=== PATIENT | female | born 1950 | race Caucasian/White ===

== ENCOUNTER 2018-12-22 11:51 | Emergency (ER) | payer OTHER ==
[~2018-12-22] VITALS: Ht 157.5 cm; Wt 80.7 kg
--- OUTSIDE RECORDS SUMMARY | 2018-12-22 11:54 | XMS REPORT | Clinical Summary ---
Author [facility] Address Unknown Phone Unavailable Care Team Providers Care Vice President Diversity Name Role Phone Edna Pino MD PCP Allergies Comments Active Allergy Reactions Severity Noted Date disorientation Zolpidem 01/18/2016 Yeast infection Erythromycin 07/10/2015 Disorientation, agitation Morphine 05/09/2017 Medications End Date Status Medication Sig Dispensed Refills Start Date Active atorvastatin (LIPITOR) 10 Take 10 mg by 0 MG tablet mouth. 5 Active glimepiride (AMARYL) 4 MG Take 4 mg by 0 201 tablet mouth daily . 5 Active losartan (COZAAR) 100 MG 100 mg. 0 tablet 1 Active meloxicam (MOBIC) 15 MG Take 15 mg by 0 tablet mouth as 5 needed . Active metFORMIN (GLUCOPHAGE) Take 500 mg 0 500 MG tablet by mouth 2 5 (two) times daily with breakfast and dinner . Active omeprazole (PRILOSEC) 20 Take 20 mg by 0 MG capsule mouth daily . 5 Active gabapentin (NEURONTIN) Take 100 mg 0 100 MG capsule by mouth 3 (three) times daily. Active Problems Not on file Social History Date Tobacco Use Types Packs/Day Years Used Never Smoker Alcohol Use Drinks/Week oz/Week Comments No Sex Assigned at Date Recorded Not on file Industry Job Start Date Occupation Not on file Not on file Not on file Travel End Travel History Travel Start No recent travel history available. Last Filed Vital Signs Not on file Plan of Treatment Not on file Results Not on fileafter 12/21/2017 Insurance Payer Benefit Subscriber ID Type Phone Address Plan / Group [employer] xxxxxxxxx Maps HMO ALL Contracted
--- OUTSIDE RECORDS SUMMARY | 2018-12-22 11:55 | XMS REPORT | Summary of Care ---
Author Author [facility] Organization [facility] Address Unknown Phone Unavailable Encounter TAMARA Lyons(BHARAT) [id number] Date(s): 05/08/17 - 05/09/17 [facility] [address] [place] [address]- [phone] Discharge Diagnosis: Cholelithiasis Discharge Disposition: Home or Self Care Attending Physician: Prateek Mancini DO Vital Signs Most recent to 1 2 oldest [Reference Range]: Height 157.48 cm (05/08/17 8:24 PM) Temperature Oral 98.8 DegF [96.4-99.1 DegF] (05/08/17 8:24 PM) Blood Pressure 178/78 mmHg 205/92 mmHg [90-140/60-90 mmHg] *HI* *HI* (05/09/17 12:15 AM) (05/08/17 8:24 PM) Respiratory Rate 18 BRMIN 16 BRMIN [14-20 BRMIN] (05/09/17 12:15 AM) (05/08/17 8:24 PM) Peripheral Pulse 92 bpm Rate [60-100 bpm] (05/08/17 8:24 PM) Weight 81.818 kg (05/08/17 8:24 PM) Body Mass Index 32.99 m2 (05/08/17 8:24 PM) Problem List Condition Effective Dates Status Health Status Informant Anxiety(Confirmed) Resolved Apnea, Resolved sleep(Confirmed) Arthritis(Confirmed) Resolved 1 Asthma(Confirmed) Resolved Bronchitis(Confirmed Resolved ) Diabetes(Confirmed) Active End stage kidney Active disease(Confirmed) H/O urinary tract Resolved infection(Confirmed) HTN Active (hypertension)(Confi rmed) H/O Resolved neuropathy(Confirmed ) 1knees Allergies, Adverse Reactions, Alerts Substance Reaction Severity Status Ambien Active azithromycin Active morphine Active Medications fentaNYL 25 microgram, 0.5 mL, Route: IVP, Drug form: INJ, ONCE, Dosing Weight 81.818, kg , Priority: STAT, Start date: 05/08/17 20:28:00 CDT, Stop date: 05/08/17 20:28:0 0 CDT Notes: (Same as: Sublimaze) Preservative free. Start Date: 05/08/17 Stop Date: 05/08/17 Status: Discontinued fentaNYL 50 microgram, 1 mL, Route: IVP, Drug form: INJ, ONCE, Dosing Weight 81.818, kg, Priority: STAT, Start date: 05/08/17 23:20:00 CDT, Stop date: 05/08/17 23:20:00 CDT Notes: (Same as: Sublimaze) Preservative free. Start Date: 05/08/17 Stop Date: 05/08/17 Status: Completed ondansetron 4 mg, 2 mL, Route: IVP, Drug form: INJ, ONCE, Dosing Weight 81.818, kg, Priority : STAT, Start date: 05/08/17 20:26:00 CDT, Stop date: 05/08/17 20:26:00 CDT Notes: (Same as: Zofran) MEDICATION WASTE Product Size: 4 mgProduct Was alethea: ___ mg Start Date: 05/08/17 Stop Date: 05/08/17 Status: Completed Saline Flush 0.9% 10 mL, Route: IVP, Drug Form: INJ, Dosing Weight 81.818, kg, PRN, PRN Line Flush , Start date: 05/08/17 20:26:00 CDT, Duration: 30 day, Stop date: 06/07/17 20:25 :00 CDT Notes: (Same as: BD Posiflush) Start Date: 05/08/17 Stop Date: 05/09/17 Status: Discontinued Tylenol with Codeine #3 oral tablet 1-2 tab, PO, Q6H, PRN for pain, X 3 day, # 24 tab, 0 Refill(s) Start Date: 05/09/17 Stop Date: 05/12/17 Status: Ordered Zofran 4 mg, 2 mL, Route: IVP, Drug form: INJ, ONCE, Dosing Weight 81.818, kg, Priority : STAT, Start date: 05/08/17 23:20:00 CDT, Stop date: 05/08/17 23:20:00 CDT Notes: (Same as: Tova) MEDICATION WASTE Product Size: 4 mgProduct Was alethea: ___ mg Start Date: 05/08/17 Stop Date: 05/08/17 Status: Deleted Results ELECTROLYTES Most recent to 1 oldest [Reference Range]: Sodium Lvl [135-145 138 mEq/L mEq/L] (05/08/17 9:54 PM) Potassium Lvl 3.5 mEq/L [3.5-5.1 mEq/L] (05/08/17 9:54 PM) Chloride Lvl [95-109 103 mEq/L mEq/L] (05/08/17 9:54 PM) CO2 [24-32 mEq/L] 26 mEq/L (05/08/17 9:54 PM) AGAP [10.0-20.0 12.5 mEq/L mEq/L] (05/08/17 9:54 PM) CHEM PANEL Most recent to 1 oldest [Reference Range]: Creatinine Lvl 1.03 mg/dL [0.50-1.40 mg/dL] (05/08/17 9:54 PM) eGFR 56 mL/min/1.73m2 1 *NA* (05/08/17 9:54 PM) BUN [7-22 mg/dL] 13 mg/dL (05/08/17 9:54 PM) B/C Ratio [6-25] 13 (05/08/17 9:54 PM) Glucose Lvl [70-99 160 mg/dL mg/dL] *HI* (05/08/17 9:54 PM) Total Protein 7.2 g/dL [6.4-8.4 g/dL] (05/08/17 9:54 PM) Albumin Lvl [3.5-5.0 3.5 g/dL g/dL] (05/08/17 9:54 PM) Globulin [2.7-4.2 3.7 g/dL g/dL] (05/08/17 9:54 PM) A/G Ratio [0.7-1.6] 0.9 (05/08/17 9:54 PM) Calcium Lvl 9.1 mg/dL [8.5-10.5 mg/dL] (05/08/17 9:54 PM) ALT [0-65 unit/L] 17 unit/L (05/08/17 9:54 PM) AST [0-37 unit/L] 17 unit/L (05/08/17 9:54 PM) Alk Phos [39-136 142 unit/L unit/L] *HI* (05/08/17 9:54 PM) Bili Total [0.2-1.3 0.6 mg/dL mg/dL] (05/08/17 9:54 PM) Lipase Lvl [73-393 50 unit/L unit/L] *LOW* (05/08/17 9:54 PM) 1Result Comment: The eGFR is calculated using the CKD-EPI formula. In most young, healthy individuals the eGFR will be >90 mL/min/1.73m2. The eGFR declines with age. An eGFR of 60-89 may be normal in some populations, particularly the elderly, for whom the CKD-EPI formula has not been extensively validated. Use of the eGFR is not recommended in the following populations: Individuals with unstable creatinine concentrations, including patients and those with serious co-morbid conditions. Patients with extremes in muscle mass or diet. The data above are obtained from the National Kidney Disease Education Program ( NKDEP) which additionally recommends that when the eGFR is used in patients with extremes of body mass index for purposes of drug dosing, the eGFR should be mul tiplied by the estimated BMI. CARDIAC ENZYMES Most recent to 1 oldest [Reference Range]: Total CK [12-191 109 unit/L unit/L] (05/08/17 9:54 PM) CK MB [0.5-3.6 1.0 ng/mL ng/mL] (05/08/17 9:54 PM) CK MB Index 0.9 [0.0-2.5] (05/08/17 9:54 PM) Troponin-I <0.02 ng/mL [0.00-0.40 ng/mL] (05/08/17 9:54 PM) HEMATOLOGY Most recent to 1 oldest [Reference Range]: WBC [3.7-10.4 K/CMM] 9.5 K/CMM (05/08/17 9:54 PM) RBC [4.20-5.40 4.48 M/CMM M/CMM] (05/08/17 9:54 PM) Hgb [12.0-16.0 g/dL] 13.9 g/dL (05/08/17 9:54 PM) Hct [36.0-48.0 %] 40.6 % (05/08/17 9:54 PM) MCV [80.0-98.0 fL] 90.6 fL (05/08/17 9:54 PM) MCH [27.0-31.0 pg] 31.0 pg (05/08/17 9:54 PM) MCHC [32.0-36.0 34.2 g/dL g/dL] (05/08/17 9:54 PM) RDW [11.5-14.5 %] 13.4 % (05/08/17 9:54 PM) Platelet [133-450 167 K/CMM K/CMM] (05/08/17 9:54 PM) MPV [7.4-10.4 fL] 11.0 fL *HI* (05/08/17 9:54 PM) Segs [45.0-75.0 %] 74.5 % (05/08/17 9:54 PM) Lymphocytes 16.8 % [20.0-40.0 %] *LOW* (05/08/17 9:54 PM) Monocytes [2.0-12.0 6.8 % %] (05/08/17 9:54 PM) Eosinophils [0.0-4.0 1.0 % %] (05/08/17 9:54 PM) Basophils [0.0-1.0 0.9 % %] (05/08/17 9:54 PM) Segs-Bands # 7.1 K/CMM [1.5-8.1 K/CMM] (05/08/17 9:54 PM) Lymphocytes # 1.6 K/CMM [1.0-5.5 K/CMM] (05/08/17 9:54 PM) Monocytes # [0.0-0.8 0.6 K/CMM K/CMM] (05/08/17 9:54 PM) Eosinophils # 0.1 K/CMM [0.0-0.5 K/CMM] (05/08/17 9:54 PM) Basophils # [0.0-0.2 0.1 K/CMM K/CMM] (05/08/17 9:54 PM) Immunizations No data available for this section Procedures Procedure Date Related Diagnosis Body Site Hysterectomy1 Insertion of tunneled dialysis catheter using fluoroscopic guidance2 Tonsillectomy 1total abdominal hysterectomy 2December 2014 Social History Social History Type Response Alcohol Never Smoking Status Never smoker; Exposure to Tobacco Smoke None; Cigarette Smoking Last 365 Days No; Reg Smoking Cessation Counseling Yes Assessment and Plan No data available for this section
--- OUTSIDE RECORDS SUMMARY | 2018-12-22 11:55 | XMS REPORT | Summary of Care ---
Author Author [facility] Organization [facility] Address Unknown Phone Unavailable Encounter TAMARA Lyons(BHARAT) [id number] Date(s): 11/17/15 - 11/24/15 [facility] [address] [place] [address]- Final: Syncope and collapse Discharge Disposition: Home Attending Physician: Carlos Massey MD Admitting Physician: Carlos Massey MD Vital Signs 1 2 3 Most recent to oldest [Reference Range]: 157.48 cm (11/17/15 3:54 PM) 157.48 cm (11/17/15 10:26 AM) Height 68.239 kg (11/24/15 5:46 AM) 68.381 kg (11/23/15 5:43 AM) 67.227 kg (11/22/15 4:23 AM) Current Weight 98.2 DegF (11/24/15 4:00 PM) 98.5 DegF (11/24/15 12:00 PM) 97.5 DegF (11/24/15 8:13 AM) Temperature Oral [96.4-99.1 DegF] 117/68 mmHg (11/24/15 4:00 PM) 107/67 mmHg (11/24/15 12:00 PM) 156/81 mmHg *HI* (11/24/15 8:13 AM) Blood Pressure [90-140/60-90 mmHg] 18 BRMIN (11/24/15 4:00 PM) 20 BRMIN (11/24/15 12:00 PM) 18 BRMIN (11/24/15 8:13 AM) Respiratory Rate [14-20 BRMIN] 65 bpm (11/24/15 4:00 PM) 64 bpm (11/24/15 12:00 PM) 63 bpm (11/24/15 8:13 AM) Peripheral Pulse Rate [60-100 bpm] 69.864 kg (11/20/15 7:38 AM) 72 kg (11/17/15 3:54 PM) 77.273 kg (11/17/15 10:26 AM) Weight 29.03 m2 (11/17/15 3:54 PM) 31.16 m2 (11/17/15 10:26 AM) Body Mass Index Problem List Condition Effective Dates Status Health Status Informant Apnea, Resolved sleep(Confirmed) Arthritis(Confirmed) Resolved 1 Asthma(Confirmed) Resolved Bronchitis(Confirmed Resolved ) Diabetes(Confirmed) Active End stage kidney Active disease(Confirmed) H/O urinary tract Resolved infection(Confirmed) HTN Active (hypertension)(Confi rmed) 1knees Allergies, Adverse Reactions, Alerts Substance Reaction Severity Status azithromycin Active Medications acetaminophen-hydrocodone 325 mg-5 mg oral tablet 1 tab, Route: PO, Drug Form: TAB, Dosing Weight 72, kg, Q6H, PRN Pain Score 1-3, Start date: 11/18/15 8:36:00, Duration: 30 day, Stop date: 12/18/15 8:35:00 Notes: (Same as: Robbins 325/5) Do not exceed 4gm/day of acetaminophen. Start Date: 11/18/15 Stop Date: 11/24/15 Status: Discontinued amLODIPine 10 mg, 2 tab, Route: PO, Drug form: TAB, Daily, Dosing Weight 72, kg, Start date : 11/18/15 9:00:00, Duration: 30 day, Stop date: 12/17/15 9:00:00 Notes: (Same as: Norvasc) Start Date: 11/18/15 Stop Date: 11/24/15 Status: Discontinued amLODIPine 10 mg, PO, Daily, 0 Refill(s) Start Date: 11/17/15 Status: Ordered aspirin 325 mg, 1 tab, Route: PO, Drug form: TAB, Daily, Dosing Weight 72, kg, Start mia e: 11/17/15 20:00:00, Duration: 30 day, Stop date: 12/17/15 9:00:00 Notes: Take with food. Start Date: 11/17/15 Stop Date: 11/20/15 Status: Discontinued aspirin 81 mg tablet, enteric coated 81 mg=1 tab, PO, Daily, 0 Refill(s) Start Date: 11/24/15 Status: Ordered aspirin 81 mg tablet, enteric coated 81 mg, 1 tab, Route: PO, Drug form: ECTAB, Daily, Dosing Weight 69.864, kg, Star t date: 11/21/15 9:00:00, Duration: 30 day, Stop date: 12/20/15 9:00:00 Notes: Do not crush or chew.(Same As: Ecotrin) Start Date: 11/21/15 Stop Date: 11/24/15 Status: Discontinued atorvastatin 20 mg, 2 tab, Route: PO, Drug form: TAB, Bedtime, Dosing Weight 72, kg, Start da te: 11/17/15 21:00:00, Duration: 30 day, Stop date: 12/16/15 21:00:00 Notes: (Same As: Lipitor) Start Date: 11/17/15 Stop Date: 11/24/15 Status: Discontinued atorvastatin 20 mg, PO, Bedtime, 0 Refill(s) Start Date: 11/17/15 Status: Ordered atorvastatin 20 mg, Route: PO, Drug form: TAB, Bedtime, Dosing Weight 69.864, kg, Start date: 11/20/15 21:00:00, Duration: 30 day, Stop date: 12/19/15 21:00:00 Start Date: 11/20/15 Stop Date: 11/20/15 Status: Deleted cefTRIAXone + Sodium Chloride 0.9% IV 100 mL 1 gm, Route: IVPB, [id number], Dosing Weight 77.273, kg, Start date: 11/17/15 16:00 :00, Duration: 30 day, Stop date: 12/16/15 21:00:00 Notes: (Same As: Rocephin).Use with 100 mL NS and infuse over 30 min MEDICA TION WASTE Product Size: 1000 mgProduct Wasted: ___ mg Start Date: 11/17/15 Stop Date: 11/24/15 Status: Discontinued D5W 1/2NS 1,000 mL 1,000 mL, Rate: 40 ml/hr, Infuse over: 25 hr, Route: IV, Dosing Weight 69.864 kg , Total Volume: 1,000, Start date: 11/22/15 11:29:00, Duration: 30 day, Stop mia e: 12/22/15 11:28:00 Start Date: 11/22/15 Stop Date: 11/24/15 Status: Discontinued D5W 1/2NS 1,000 mL 1,000 mL, Rate: 60 ml/hr, Infuse over: 16.7 hr, Route: IV, Dosing Weight 69.864 kg, Total Volume: 1,000, Start date: 11/22/15 10:06:00, Duration: 30 day, Stop d ate: 12/22/15 10:05:00 Start Date: 11/22/15 Stop Date: 11/22/15 Status: Discontinued Demerol HCl 25 mg, 1 mL, Route: IVP, Drug form: INJ, Q30Min, Dosing Weight 69.864, kg, PRN P ain Score 4-6, Start date: 11/20/15 18:40:00, Duration: 2 doses or times, Stop d ate: Limited # of times Notes: (Same as: Demerol) "Use Precaution in Elderly, Seizure disorders, and Re nal impairment" Start Date: 11/20/15 Stop Date: 11/24/15 Status: Discontinued Dextrose 50% Syringe 12.5 gm, 25 mL, Route: IVP, Drug Form: INJ, Dosing Weight 72, kg, PRN, PRN Blood Glucose Results, Start date: 11/17/15 15:58:00, Duration: 30 day, Stop date: 16:57:00 Start Date: 11/17/15 Stop Date: 11/24/15 Status: Discontinued Dextrose 50% Syringe 25 gm, 50 mL, Route: IVP, Drug Form: INJ, Dosing Weight 72, kg, PRN, PRN Blood G lucose Results, Start date: 11/17/15 15:58:00, Duration: 30 day, Stop date: 11/28 16:57:00 Start Date: 11/17/15 Stop Date: 11/24/15 Status: Discontinued diphenhydrAMINE 50 mg, 2 tab, Route: PO, Drug form: TAB, ONCE, Dosing Weight 72, kg, Administer when patient is called for by Channel Opener., Start date: 11/19/15 8:01:00, Stop date : 11/19/15 8:01:00 Start Date: 11/19/15 Stop Date: 11/20/15 Status: Completed gabapentin 300 mg, PO, TID, 0 Refill(s) Start Date: 11/17/15 Status: Ordered gabapentin 100 mg, 1 cap, Route: PO, Drug form: CAP, TID, Dosing Weight 72, kg, Start date: 11/17/15 22:00:00, Duration: 30 day, Stop date: 12/17/15 14:00:00 Notes: (Same as: Neurontin) Start Date: 11/17/15 Stop Date: 11/24/15 Status: Discontinued glimepiride 2 mg, PO, BID, before meals, 0 Refill(s) Start Date: 11/17/15 Status: Ordered glimepiride 2 mg, 1 tab, Route: PO, Drug form: TAB, BID-Before Meals, Dosing Weight 72, kg, Start date: 11/18/15 7:30:00, Duration: 30 day, Stop date: 12/17/15 16:30:00 Notes: (Same as: Amaryl) Start Date: 11/18/15 Stop Date: 11/24/15 Status: Discontinued glucagon 1 mg, Route: IM, Drug form: PDR/INJ, PRN, Dosing Weight 72, kg, PRN Blood Glucos e Results, Start date: 11/17/15 15:58:00, Duration: 30 day, Stop date: 12/17/15 16:57:00 Start Date: 11/17/15 Stop Date: 11/24/15 Status: Discontinued Heparin - one time bolus for ACS 3,500 unit, 3.5 mL, Route: IV, Drug form: INJ, ONCE, Dosing Weight 72, kg, Prior ity: STAT, Start date: 11/17/15 18:47:00, Stop date: 11/17/15 18:47:00 Start Date: 11/17/15 Stop Date: 11/17/15 Status: Completed Heparin 30 unit/kg Bolus (Heparin Dosing Weight) Route: IVP, PRN, 1,800 unit, 1.8 mL, Drug form: INJ, PRN, Heparin Protocol, Star t date: 11/17/15 18:47:00 Stop date: 12/17/15 19:46:00, 30 day Start Date: 11/17/15 Stop Date: 11/20/15 Status: Discontinued Heparin 60 unit/kg Bolus (Heparin Dosing Weight) Route: IVP, PRN, 3,500 unit, 3.5 mL, Drug form: INJ, PRN, Heparin Protocol, Star t date: 11/17/15 18:47:00 Stop date: 12/17/15 19:46:00, 30 day Start Date: 11/17/15 Stop Date: 11/20/15 Status: Discontinued heparin additive 25,000 unit [12 unit/kg/hr] + Premix Diluent Dextrose 5% 500 mL 500 mL, Rate: 14.13 ml/hr, Infuse over: 35.4 hr, Route: IV, Dosing Weight 58.86 kg, Total Volume: 500 mL, Start date: 11/17/15 18:47:00, Duration: 30 day, Stop date: 12/17/15 18:46:00 Start Date: 11/17/15 Stop Date: 11/20/15 Status: Discontinued insulin aspart 6 unit, SUB-Q, Bedtime, 0 Refill(s) Start Date: 11/17/15 Status: Ordered insulin aspart 6 unit, 0.06 mL, Route: SUB-Q, Drug form: SOLN, TID-Before Meals, Dosing Weight 72, kg, PRN Blood Glucose Results, Start date: 11/17/15 15:58:00, Duration: 30 d ay, Stop date: 12/17/15 15:57:00 Notes: Roll in palms of hands gently; Do not shake vigorously. (Same as: Milan Vu)"single patient use only"WASTE: F/P - Black; E - Municipal Trash Bin Stable f or 28 days at room temperature.Expires in days from Date Start Date: 11/17/15 Stop Date: 11/24/15 Status: Discontinued insulin aspart 10 unit, 0.1 mL, Route: SUB-Q, Drug form: SOLN, TID-Before Meals, Dosing Weight 72, kg, PRN Blood Glucose Results, Start date: 11/17/15 15:58:00, Duration: 30 d ay, Stop date: 12/17/15 15:57:00 Notes: Roll in palms of hands gently; Do not shake vigorously. (Same as: Milan Vu)"single patient use only"WASTE: F/P - Black; E - Municipal Trash Bin Stable f or 28 days at room temperature.Expires in days from Date Start Date: 11/17/15 Stop Date: 11/24/15 Status: Discontinued insulin aspart 2 unit, 0.02 mL, Route: SUB-Q, Drug form: SOLN, TID-Before Meals, Dosing Weight 72, kg, PRN Blood Glucose Results, Start date: 11/17/15 15:58:00, Duration: 30 d ay, Stop date: 12/17/15 15:57:00 Notes: Roll in palms of hands gently; Do not shake vigorously. (Same as: Milan Vu)"single patient use only"WASTE: F/P - Black; E - Municipal Trash Bin Stable f or 28 days at room temperature.Expires in days from Date Start Date: 11/17/15 Stop Date: 11/24/15 Status: Discontinued insulin aspart 4 unit, 0.04 mL, Route: SUB-Q, Drug form: SOLN, TID-Before Meals, Dosing Weight 72, kg, PRN Blood Glucose Results, Start date: 11/17/15 15:58:00, Duration: 30 d ay, Stop date: 12/17/15 15:57:00 Notes: Roll in palms of hands gently; Do not shake vigorously. (Same as: Milan Vu)"single patient use only"WASTE: F/P - Black; E - Municipal Trash Bin Stable f or 28 days at room temperature.Expires in days from Date Start Date: 11/17/15 Stop Date: 11/24/15 Status: Discontinued insulin aspart 8 unit, 0.08 mL, Route: SUB-Q, Drug form: SOLN, TID-Before Meals, Dosing Weight 72, kg, PRN Blood Glucose Results, Start date: 11/17/15 15:58:00, Duration: 30 d ay, Stop date: 12/17/15 15:57:00 Notes: Roll in palms of hands gently; Do not shake vigorously. (Same as: NovoLO G)"single patient use only"WASTE: F/P - Black; E - Municipal Trash Bin Stable f or 28 days at room temperature.Expires in days from Date Start Date: 11/17/15 Stop Date: 11/24/15 Status: Discontinued insulin aspart 6 unit, 0.06 mL, Route: SUB-Q, Drug form: SOLN, Bedtime, Dosing Weight 72, kg, S tart date: 11/17/15 21:00:00, Duration: 30 day, Stop date: 12/16/15 21:00:00 Notes: Roll in palms of hands gently; Do not shake vigorously. (Same as: NovoBETY G)"single patient use only"WASTE: F/P - Black; E - Municipal Trash Bin Stable f or 28 days at room temperature.Expires in days from Date Start Date: 11/17/15 Stop Date: 11/24/15 Status: Discontinued isosorbide mononitrate extended release 30 mg, 1 tab, Route: PO, Drug form: ERTAB, Daily, Dosing Weight 69.864, kg, Star t date: 11/21/15 9:00:00, Duration: 30 day, Stop date: 12/20/15 9:00:00 Notes: (Same as:Imdur)"Do Not Crush" Take on empty stomach/ full glass of water . Do not crush Start Date: 11/21/15 Stop Date: 11/24/15 Status: Discontinued lactulose 30 gm, 45 mL, Route: PO, Drug Form: SYRP, Dosing Weight 72, kg, Q6H, PRN See Beto pappas's Notes, Start date: 11/18/15 13:55:00, Duration: 30 day, Stop date: 12/18/15 13:54:00, for constipation Notes: (Same as:Chronulac) Start Date: 11/18/15 Stop Date: 11/24/15 Status: Discontinued Lopressor 100 mg, 1 tab, Route: PO, Drug form: TAB, Q12H, Dosing Weight 72, kg, Start date : 11/17/15 21:00:00, Duration: 30 day, Stop date: 12/17/15 9:00:00 Notes: (Same as: Lopressor) Start Date: 11/17/15 Stop Date: 11/20/15 Status: Discontinued LORazepam 0.5 mg, 1 tab, Route: PO, Drug form: TAB, Q8H, Dosing Weight 72, kg, PRN Other - See Comment, Start date: 11/18/15 17:18:00, Duration: 30 day, Stop date: 6 17:17:00, for anxiety Notes: (Same as: Ativan) Start Date: 11/18/15 Stop Date: 11/24/15 Status: Discontinued losartan 100 mg, 2 tab, Route: PO, Drug form: TAB, Daily, Dosing Weight 72, kg, Start mia e: 11/17/15 20:00:00, Duration: 30 day, Stop date: 12/17/15 9:00:00 Notes: (Same as: Cozaar) Start Date: 11/17/15 Stop Date: 11/24/15 Status: Discontinued losartan 50 mg oral tablet 100 mg=2 tab, PO, Daily, 0 Refill(s) Start Date: 11/17/15 Status: Ordered metoprolol tartrate 100 mg, 1 tab, Route: PO, Drug form: TAB, Q12H, Dosing Weight 69.864, kg, Start date: 11/20/15 21:00:00, Duration: 30 day, Stop date: 12/20/15 9:00:00 Notes: (Same as: Lopressor) Start Date: 11/20/15 Stop Date: 11/24/15 Status: Discontinued metoprolol tartrate 50 mg oral tablet 100 mg=2 tab, PO, BID, 0 Refill(s) Start Date: 11/17/15 Status: Ordered morphine Sulfate 2 mg, 1 mL, Route: IV, Drug form: INJ, Q30Min, Dosing Weight 69.864, kg, PRN Lisa n Score 4-6, Start date: 11/20/15 13:52:00, Duration: 30 day, Stop date: 6 14:51:00 Notes: (Same as:MORPhine Sulfate) Start Date: 11/20/15 Stop Date: 11/24/15 Status: Discontinued nitroglycerin SL Tab 0.4 mg, Route: SL, Drug form: TAB, Q5Min, Dosing Weight 69.864, kg, PRN Chest Pa in, Start date: 11/20/15 13:48:00, Duration: 3 doses or times, Stop date: Limite d # of times Start Date: 11/20/15 Stop Date: 11/20/15 Status: Deleted nitroglycerin SL Tab 0.4 mg, 1 tab, Route: SL, Drug form: TAB, Q5Min, Dosing Weight 72, kg, PRN Chest Pain, Start date: 11/17/15 15:59:00, Duration: 3 doses or times, Stop date: Gaspar ited # of times Notes: (Same as:Nitroquick, Nitrostat)"Do Not Crush" Sublingual tablet Start Date: 11/17/15 Stop Date: 11/24/15 Status: Discontinued pantoprazole 40 mg, PO, Daily, before breakfast, # 30 tab, 0 Refill(s) Start Date: 11/17/15 Stop Date: 12/17/15 Status: Ordered pantoprazole 40 mg, 1 tab, Route: PO, Drug form: ECTAB, Daily, Dosing Weight 72, kg, Start da te: 11/18/15 9:00:00, Duration: 30 day, Stop date: 12/17/15 9:00:00 Notes: Tablet should not be chewed or crushed.(Same as: Protonix) Start Date: 11/18/15 Stop Date: 11/24/15 Status: Discontinued Phenergan 12.5 mg, 0.5 tab, Route: PO, Drug form: TAB, Q4H, Dosing Weight 69.864, kg, PRN Nausea & Vomiting, Start date: 11/22/15 8:47:00, Duration: 30 day, Stop date: 12/22/15 8:46:00 Notes: (Same as: Phenergan) Start Date: 11/22/15 Stop Date: 11/24/15 Status: Discontinued Phenergan 12.5 mg, 50 mL, Route: IVPB, Drug form: SOLN, Q6H, Dosing Weight 69.864, kg, PRN Nausea & Vomiting, Start date: 11/20/15 22:24:00, Duration: 30 day, Stop date: 12/20/15 22:23:00 Start Date: 11/20/15 Stop Date: 11/24/15 Status: Discontinued potassium chloride 40 mEq, 2 tab, Route: PO, Drug form: ERTAB, ONCE, Dosing Weight 72, kg, Start da te: 11/20/15 6:22:00, Stop date: 11/20/15 6:22:00 Notes: (Same as: K-Dur 20)"Do Not Crush" With food and full glass of water Start Date: 11/20/15 Stop Date: 11/20/15 Status: Completed potassium chloride 40 mEq, 2 tab, Route: PO, Drug form: ERTAB, ONCE, Dosing Weight 72, kg, Start da te: 11/17/15 16:05:00, Stop date: 11/17/15 16:05:00 Notes: (Same as: K-Dur 20)"Do Not Crush" With food and full glass of water Start Date: 11/17/15 Stop Date: 11/17/15 Status: Completed potassium chloride 20 mEq/15 mL oral liquid 40 mEq, 30 mL, Route: PO, Drug form: LIQ, ONCE, Dosing Weight 72, kg, Start date : 11/19/15 11:11:00, Stop date: 11/19/15 11:11:00 Notes: (Same as: Potassium Chloride) Start Date: 11/19/15 Stop Date: 11/19/15 Status: Completed Saline Flush 0.9% 10 mL, Route: IVP, Drug Form: INJ, Dosing Weight 77.273, kg, PRN, PRN Line Flush , Start date: 11/17/15 10:52:00, Duration: 30 day, Stop date: 12/17/15 11:51:00 Notes: (Same as: BD Posiflush) Start Date: 11/17/15 Stop Date: 11/24/15 Status: Discontinued Saline Flush 0.9% 10 ml, Route: IVP, Drug Form: INJ, Dosing Weight 72, kg, Q12H, Start date: 11/17 21:00:00, Duration: 30 day, Stop date: 12/17/15 9:00:00 Notes: (Same as: BD Posiflush) Start Date: 11/17/15 Stop Date: 11/24/15 Status: Discontinued Saline Flush 0.9% 10 ml, Route: IVP, Drug Form: INJ, Dosing Weight 72, kg, PRN, PRN Line Flush, St art date: 11/17/15 15:59:00, Duration: 30 day, Stop date: 12/17/15 16:58:00 Notes: (Same as: BD Posiflush) Start Date: 11/17/15 Stop Date: 11/24/15 Status: Discontinued Sodium Chloride 0.9% (Bolus) IV 1,000 mL, 1000 ml/hr, Infuse Over: 1 hr, Route: IV, 1,000, Drug form: INJ, ONCE, Priority: STAT, Dosing Weight 77.273 kg, Start date: 11/17/15 10:52:00, Duratio n: 1 doses or times, Stop date: 11/17/15 10:52:00 Start Date: 11/17/15 Stop Date: 11/17/15 Status: Completed Sodium Chloride 0.9% (Bolus) IV 250 mL, 250 ml/hr, Infuse Over: 1 hr, Route: IV, 250, Drug form: INJ, ONCALL, Pr iority: Routine, Dosing Weight 72 kg, Start date: 11/19/15 9:00:00, Duration: 1 doses or times Start Date: 11/19/15 Stop Date: 11/20/15 Status: Completed Sodium Chloride 0.9% IV 1,000 mL 1,000 mL, Rate: 10 ml/hr, Infuse over: 100 hr, Route: IV, Dosing Weight 69.864 k g, Total Volume: 1,000, Start date: 11/20/15 14:02:00, Duration: 30 day, Stop da te: 12/20/15 14:01:00 Start Date: 11/20/15 Stop Date: 11/24/15 Status: Discontinued Sodium Chloride 0.9% IV 750 mL 750 mL, Rate: 75 ml/hr, Infuse over: 10 hr, Route: IV, Dosing Weight 72 kg, Tota l Volume: 750, Start date: 11/19/15 20:00:00, Duration: 10 hr, Stop date: 5:59:00 Start Date: 11/19/15 Stop Date: 11/20/15 Status: Completed Sodium Chloride 0.9% IV 750 mL 750 mL, Rate: 75 ml/hr, Infuse over: 10 hr, Route: IV, Dosing Weight 72 kg, Tota l Volume: 750, Start date: 11/19/15 8:01:00, Duration: 10 hr, Stop date: 6 18:00:00 Start Date: 11/19/15 Stop Date: 11/19/15 Status: Deleted tizanidine 4 mg, 1 tab, Route: PO, Drug form: TAB, Q8H, Dosing Weight 72, kg, PRN as needed for muscle spasm, Start date: 11/17/15 18:51:00, Duration: 30 day, Stop date: 0 12/17/15 18:50:00 Notes: (Same As: Zanaflex) Start Date: 11/17/15 Stop Date: 11/24/15 Status: Discontinued tizanidine 4 mg oral tablet 4 mg=1 tab, PO, Q8H, PRN as needed for muscle spasm, 0 Refill(s) Start Date: 11/17/15 Status: Ordered tramadol 50 mg oral tablet 50 mg, 1 tab, Route: PO, Drug form: TAB, Q6H, Dosing Weight 72, kg, PRN Pain Sco re 1-3, Start date: 11/18/15 11:43:00, Duration: 30 day, Stop date: 12/18/15 11: 42:00 Notes: Not to exceed 400mg/day. (Same As: Ultram) Start Date: 11/18/15 Stop Date: 11/24/15 Status: Discontinued Zofran 4 mg, 2 mL, Route: IV, Drug form: INJ, Q8H, Dosing Weight 69.864, kg, PRN Nausea , Start date: 11/20/15 13:52:00, Duration: 30 day, Stop date: 12/20/15 13:51:00 Notes: (Same as: Zofran) MEDICATION WASTE Product Size: 4 mgProduct Was alethea: ___ mg Start Date: 11/20/15 Stop Date: 11/20/15 Status: Deleted Zofran 4 mg, 2 mL, Route: IV, Drug form: INJ, Q8H, Dosing Weight 72, kg, PRN Nausea, St art date: 11/22/15 8:46:00, Duration: 30 day, Stop date: 12/22/15 8:45:00, for n ausea Notes: (Same as: Zofran) MEDICATION WASTE Product Size: 4 mgProduct Was alethea: ___ mg Start Date: 11/22/15 Stop Date: 11/24/15 Status: Discontinued Zofran 4 mg, 2 mL, Route: IV, Drug form: INJ, Q8H, Dosing Weight 72, kg, PRN Nausea, St art date: 11/18/15 18:16:00, Duration: 30 day, Stop date: 12/18/15 18:15:00, for nausea Notes: (Same as: Zofran) MEDICATION WASTE Product Size: 4 mgProduct Was alethea: ___ mg Start Date: 11/18/15 Stop Date: 11/22/15 Status: Discontinued Zofran 4 mg, 2 mL, Route: IVP, Drug form: INJ, ONCE, Dosing Weight 69.864, kg, Start da te: 11/21/15 15:49:00, Stop date: 11/21/15 15:49:00 Notes: (Same as: Zofran) MEDICATION WASTE Product Size: 4 mgProduct Was alethea: ___ mg Start Date: 11/21/15 Stop Date: 11/21/15 Status: Completed Zofran ODT 4 mg, 1 tab, Route: PO, Drug form: TABDIS, Q8H, Dosing Weight 69.864, kg, PRN as needed for nausea/vomiting, Start date: 11/22/15 11:36:00, Duration: 30 day, St op date: 12/22/15 11:35:00 Notes: (Same as: Zofran ODT) Start Date: 11/22/15 Stop Date: 11/24/15 Status: Discontinued Zofran ODT 4 mg, 1 tab, Route: PO, Drug form: TABDIS, TID, Dosing Weight 69.864, kg, Start date: 11/22/15 9:00:00, Duration: 30 day, Stop date: 12/21/15 17:00:00 Notes: (Same as: Zofran ODT) Start Date: 11/22/15 Stop Date: 11/22/15 Status: Discontinued Results ELECTROLYTES 1 2 3 Most recent to oldest [Reference Range]: 137 mEq/L (11/21/15 5:44 AM) 134 mEq/L *LOW* (11/20/15 4:57 AM) 135 mEq/L (11/19/15 3:49 AM) Sodium Lvl [135-145 mEq/L] 3.6 mEq/L (11/21/15 5:44 AM) 3.1 mEq/L *LOW* (11/20/15 4:57 AM) 3.0 mEq/L 1 *CRIT* (11/19/15 3:49 AM) Potassium Lvl [3.5-5.1 mEq/L] 103 mEq/L (11/21/15 5:44 AM) 100 mEq/L (11/20/15 4:57 AM) 97 mEq/L (11/19/15 3:49 AM) Chloride Lvl [95-109 mEq/L] 20 mEq/L *LOW* (11/21/15 5:44 AM) 23 mEq/L *LOW* (11/20/15 4:57 AM) 30 mEq/L (11/19/15 3:49 AM) CO2 [24-32 mEq/L] 17.6 mEq/L (11/21/15 5:44 AM) 14.1 mEq/L (11/20/15 4:57 AM) 11.0 mEq/L (11/19/15 3:49 AM) AGAP [10.0-20.0 mEq/L] 1Result Comment: Critical Result(s) called to [facility] at 11/19/2015 04:32 by [facility]. Read back OK. CHEM PANEL 1 2 3 Most recent to oldest [Reference Range]: 1.54 mg/dL *HI* (11/21/15 5:44 AM) 1.53 mg/dL *HI* (11/20/15 4:57 AM) 1.33 mg/dL (11/19/15 3:49 AM) Creatinine Lvl [0.50-1.40 mg/dL] 35 mL/min/1.73m2 1 *NA* (11/21/15 5:44 AM) 35 mL/min/1.73m2 2 *NA* (11/20/15 4:57 AM) 42 mL/min/1.73m2 3 *NA* (11/19/15 3:49 AM) eGFR 17 mg/dL (11/21/15 5:44 AM) 11 mg/dL (11/20/15 4:57 AM) 9 mg/dL (11/19/15 3:49 AM) BUN [7-22 mg/dL] 6 (11/17/15 10:55 AM) B/C Ratio [6-25] 191 mg/dL *HI* (11/21/15 5:44 AM) 159 mg/dL *HI* (11/20/15 4:57 AM) 181 mg/dL *HI* (11/19/15 3:49 AM) Glucose Lvl [70-99 mg/dL] 7.5 g/dL (11/22/15 11:20 AM) 6.0 g/dL *LOW* (11/17/15 10:55 AM) Total Protein [6.4-8.4 g/dL] 3.7 g/dL (11/22/15 11:20 AM) 2.8 g/dL *LOW* (11/17/15 10:55 AM) Albumin Lvl [3.5-5.0 g/dL] 3.8 g/dL (11/22/15 11:20 AM) 3.2 g/dL (11/17/15 10:55 AM) Globulin [2.0-4.0 g/dL] 1.0 (11/22/15 11:20 AM) 0.9 (11/17/15 10:55 AM) A/G Ratio [0.7-1.6] 9.7 mg/dL (11/21/15 5:44 AM) 9.4 mg/dL (11/20/15 4:57 AM) 9.4 mg/dL (11/19/15 3:49 AM) Calcium Lvl [8.5-10.5 mg/dL] 3.1 mg/dL (11/17/15 11:28 AM) Phosphorus [2.5-4.5 mg/dL] 1.8 mg/dL (11/17/15 11:28 AM) Magnesium Lvl [1.8-2.4 mg/dL] 21 unit/L (11/22/15 11:20 AM) 14 unit/L (11/17/15 10:55 AM) ALT [0-65 unit/L] 17 unit/L (11/22/15 11:20 AM) 12 unit/L (11/17/15 10:55 AM) AST [0-37 unit/L] 88 unit/L (11/22/15 11:20 AM) 86 unit/L (11/17/15 10:55 AM) Alk Phos [39-136 unit/L] 0.8 mg/dL (11/22/15 11:20 AM) 0.6 mg/dL (11/17/15 10:55 AM) Bili Total [0.2-1.3 mg/dL] 0.1 mg/dL (11/22/15 11:20 AM) Bili Direct [0.0-0.3 mg/dL] 0.7 mg/dL (11/22/15 11:20 AM) Bili Indirect [0.0-1.0 mg/dL] 52 unit/L (11/22/15 11:20 AM) Amylase Lvl [25-115 unit/L] 183 unit/L (11/22/15 11:20 AM) 71 unit/L *LOW* (11/17/15 11:28 AM) Lipase Lvl [73-393 unit/L] 2.3 mMol/L *HI* (11/17/15 11:28 AM) Lactic Acid Lvl [0.5-2.2 mMol/L] 0.08 ng/mL (11/17/15 10:55 AM) Procalcitonin Lvl [0.00-0.10 ng/mL] 1Result Comment: The eGFR is calculated using [...] be mul tiplied by the estimated BMI. 2Result Comment: The eGFR is calculated using the [...] be mul tiplied by the estimated BMI. 3Result Comment: The eGFR is calculated using the [...] tiplied by the estimated BMI. CARDIAC ENZYMES 1 2 3 Most recent to oldest [Reference Range]: 65 unit/L (11/17/15 11:06 PM) 68 unit/L (11/17/15 5:07 PM) 52 unit/L (11/17/15 11:28 AM) Total CK [12-191 unit/L] 1.3 ng/mL (11/17/15 11:28 AM) CK MB [0.5-3.6 ng/mL] 2.5 (11/17/15 11:28 AM) CK MB Index [0.0-2.5] 0.73 ng/mL 1 *CRIT* (11/17/15 11:06 PM) 0.65 ng/mL 2 *CRIT* (11/17/15 5:07 PM) 0.02 ng/mL (11/17/15 11:28 AM) Troponin-I [0.00-0.40 ng/mL] 1Result Comment: Critical Result(s) called to Ashia Maldonado RN at 11/17/2015 23:47 by TSJ. Read back OK. 2Result Comment: Critical Result(s) called to mc girard at 11/17/2015 18:18_ by_bz. Read back OK. URINE AND STOOL 1 2 3 Most recent to oldest [Reference Range]: Clear (11/17/15 2:47 PM) UA Turbidity [Clear] Yellow *NA* (11/17/15 2:47 PM) UA Color [Yellow] 6.5 (11/17/15 2:47 PM) UA pH [5.0-8.0] 1.015 (11/17/15 2:47 PM) UA Spec Grav [<=1.030] Negative (11/17/15 2:47 PM) UA Glucose [Negative] Trace *ABN* (11/17/15 2:47 PM) UA Blood [Negative] Trace *ABN* (11/17/15 2:47 PM) UA Ketones [Negative] 30 mg/dL *ABN* (11/17/15 2:47 PM) UA Protein [Negative mg/dL] 0.2 EU/dL (11/17/15 2:47 PM) UA Urobilinogen [0.1-1.0 EU/dL] Small *ABN* (11/17/15 2:47 PM) UA Bili [Negative] Negative (11/17/15 2:47 PM) UA Leuk Est [Negative] Negative (11/17/15 2:47 PM) UA Nitrite [Negative] 6-10 /HPF *ABN* (11/17/15 2:47 PM) UA WBC [None Seen /HPF] 11-20 /HPF *ABN* (11/17/15 2:47 PM) UA RBC [0-2 /HPF] Few /HPF (11/17/15 2:47 PM) UA Bacteria [None Seen /HPF] Few /LPF (11/17/15 2:47 PM) UA Sq Epi [Few /LPF] IMMUNOLOGY 1 2 3 Most recent to oldest [Reference Range]: 128 mg/dL (11/22/15 11:20 AM) C3 Complement [88-201 mg/dL] 28 mg/dL (11/22/15 11:20 AM) C4 Complement [16-47 mg/dL] Negative *NA* (11/18/15 5:57 PM) Hep Bs Ag [Negative] 5.6 mIU/mL (11/18/15 5:57 PM) Hep Bs Ab [<=7.4 mIU/mL] Negative *NA* (11/18/15 5:57 PM) Hep B Core Ab [Negative] HEMATOLOGY 1 2 3 Most recent to oldest [Reference Range]: 7.1 K/CMM (11/21/15 5:44 AM) 8.9 K/CMM (11/20/15 4:57 AM) 7.2 K/CMM (11/19/15 3:49 AM) WBC [3.7-10.4 K/CMM] 3.84 M/CMM *LOW* (11/21/15 5:44 AM) 3.77 M/CMM *LOW* (11/20/15 4:57 AM) 3.48 M/CMM *LOW* (11/19/15 3:49 AM) RBC [4.20-5.40 M/CMM] 11.7 g/dL *LOW* (11/21/15 5:44 AM) 11.2 g/dL *LOW* (11/20/15 4:57 AM) 10.5 g/dL *LOW* (11/19/15 3:49 AM) Hgb [12.0-16.0 g/dL] 34.5 % *LOW* (11/21/15 5:44 AM) 33.3 % *LOW* (11/20/15 4:57 AM) 30.6 % *LOW* (11/19/15 3:49 AM) Hct [36.0-48.0 %] 89.6 fL (11/21/15 5:44 AM) 88.4 fL (11/20/15 4:57 AM) 87.9 fL (11/19/15 3:49 AM) MCV [80.0-98.0 fL] 30.5 pg (11/21/15 5:44 AM) 29.7 pg (11/20/15 4:57 AM) 30.2 pg (11/19/15 3:49 AM) MCH [27.0-31.0 pg] 34.1 g/dL (11/21/15 5:44 AM) 33.6 g/dL (11/20/15 4:57 AM) 34.4 g/dL (11/19/15 3:49 AM) MCHC [32.0-36.0 g/dL] 15.2 % *HI* (11/21/15 5:44 AM) 15.2 % *HI* (11/20/15 4:57 AM) 15.4 % *HI* (11/19/15 3:49 AM) RDW [11.5-14.5 %] 153 K/CMM (11/21/15 5:44 AM) 161 K/CMM (11/20/15 4:57 AM) 152 K/CMM (11/19/15 3:49 AM) Platelet [133-450 K/CMM] 11.0 fL *HI* (11/21/15 5:44 AM) 10.6 fL *HI* (11/20/15 4:57 AM) 10.7 fL *HI* (11/19/15 3:49 AM) MPV [7.4-10.4 fL] 77.7 % *HI* (11/21/15 5:44 AM) 60.3 % (11/20/15 4:57 AM) 56.2 % (11/19/15 3:49 AM) Segs [45.0-75.0 %] 16.3 % *LOW* (11/21/15 5:44 AM) 29.7 % (11/20/15 4:57 AM) 33.3 % (11/19/15 3:49 AM) Lymphocytes [20.0-40.0 %] 5.6 % (11/21/15 5:44 AM) 7.8 % (11/20/15 4:57 AM) 8.7 % (11/19/15 3:49 AM) Monocytes [2.0-12.0 %] 1.5 % (11/20/15 4:57 AM) 1.2 % (11/19/15 3:49 AM) 1.8 % (11/17/15 7:33 PM) Eosinophils [0.0-4.0 %] 0.4 % (11/21/15 5:44 AM) 0.7 % (11/20/15 4:57 AM) 0.6 % (11/19/15 3:49 AM) Basophils [0.0-1.0 %] 5.5 K/CMM (11/21/15 5:44 AM) 5.4 K/CMM (11/20/15 4:57 AM) 4.0 K/CMM (11/19/15 3:49 AM) Segs-Bands # [1.5-8.1 K/CMM] 1.2 K/CMM (11/21/15 5:44 AM) 2.7 K/CMM (11/20/15 4:57 AM) 2.4 K/CMM (11/19/15 3:49 AM) Lymphocytes # [1.0-5.5 K/CMM] 0.4 K/CMM (11/21/15 5:44 AM) 0.7 K/CMM (11/20/15 4:57 AM) 0.6 K/CMM (11/19/15 3:49 AM) Monocytes # [0.0-0.8 K/CMM] 0.1 K/CMM (11/20/15 4:57 AM) 0.1 K/CMM (11/19/15 3:49 AM) 0.2 K/CMM (11/17/15 7:33 PM) Eosinophils # [0.0-0.5 K/CMM] 0.1 K/CMM (11/20/15 4:57 AM) 0.1 K/CMM (11/17/15 7:33 PM) 0.1 K/CMM (11/17/15 10:56 AM) Basophils # [0.0-0.2 K/CMM] 13.4 seconds (11/17/15 7:33 PM) 14.7 seconds (11/17/15 11:28 AM) PT [12.0-14.7 seconds] 0.99 (11/17/15 7:33 PM) 1.12 (11/17/15 11:28 AM) INR [0.85-1.17] 147 seconds *NA* (11/20/15 5:34 PM) 165 seconds *NA* (11/20/15 4:47 PM) 276 seconds *NA* (11/20/15 1:38 PM) POC Activated Clotting Time 68.1 seconds *HI* (11/20/15 4:57 AM) 61.1 seconds *HI* (11/19/15 3:49 AM) 56.1 seconds *HI* (11/18/15 9:44 PM) PTT [22.9-35.8 seconds] Immunizations No data available for this section Procedures Procedure Date Related Diagnosis Body Site Hysterectomy1 Insertion of tunneled dialysis catheter using fluoroscopic guidance2 Tonsillectomy 1total abdominal hysterectomy [id number] Social History Social History Type Response Smoking Status Never smoker; Exposure to Tobacco Smoke None; Cigarette Smoking Last 365 Days No; Reg Smoking Cessation Counseling Yes Assessment and Plan Extracted from: Title: FOLLOW UP NOTES Author: Ever Ray MD Date: 11/24/15 Impression and Plan The patient was seen and examined by me with the 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 IMPRESSION: 1. Syncopal episode, etiology to be determined. 2. Abnormal troponin, rule out acute coronary syndrome. 3. End-stage renal disease on hemodialysis x 2 months on [facility]ovid[facility]-Nfbnwbai-Gqyitsqb dialysis. 4. Hypertension and diabetic nephropathy. 5. Right tunneled catheter. 6. Anemia of chronic kidney disease. 7. Acute urinary tract infection. 8. Hyperlipidemia and anxiety. NAUSEA ? SEC TO CONSTIPATION plan ADD EENMA START IVFS D5W1/[id number]--POOR ORAL INTAKE HD TOMORROW IF STILL HERE DISCUSSED WITH DAUGHTER IN ROOM CAN D/C FROM MY POINT OF VIEW Extracted from: Title: General Admission H&P * Author: Obdulio Rodrigues MD Date: 11/18/15 Impression and Plan Diagnosis Elevated Troponin Hypotensive Episode Syncope Hypertension ESRD Hyperlipidemia DM -Cardiology ocnsulted secondary to elevated troponin. Started on heparin drip and plan for heart cath friday. -continue other medications.
--- OUTSIDE RECORDS SUMMARY | 2018-12-22 11:55 | XMS REPORT | Continuity of Care Document ---
Author Author [facility] Interface Address Unknown Phone Unavailable Problems Problem Status Onset Date Classification Date Reported Comments Source Discharge Diagnosis: Cholelithiasis 05/09/2017 05/12/2017 [facility] ABD PAIN Active 05/08/2017 [facility] CHEST PAIN Active 04/13/2017 [facility] Discharge Diagnosis: Hypokalemia 11/28/2015 12/01/2015 [facility] Discharge Diagnosis: Mild nausea and vomiting 11/28/2015 12/01/2015 [facility] VOMITING Active 11/28/2015 [facility] LOW BLOOD PRESSURE Active 11/17/2015 [facility] Anxiety Resolved Problem 05/12/2017 [facility] Apnea, sleep Resolved Problem 05/12/2017 [facility] Arthritis<sup>1</sup> Resolved Problem 05/12/2017 knees [facility] Asthma Resolved Problem 05/12/2017 [facility] Bronchitis Resolved Problem 05/12/2017 [facility] Diabetes Active Problem 05/12/2017 [facility] End stage kidney disease Active Problem 05/12/2017 [facility] H/O urinary tract infection Resolved Problem 05/12/2017 [facility] HTN (<span ID="[id number]">Confirmed</span>) Active Problem 05/12/2017 [facility] H/O neuropathy Resolved Problem 05/12/2017 [facility] Final: Syncope and collapse 11/27/2015 [facility] SYNCOPE AND COLLAPSE Active [facility] CALCULUS OF GALLBLADDER W/O CHOLECYSTITI Active [facility] DORSALGIA, UNSPECIFIED Active [facility] CHEST PAIN, UNSPECIFIED Active [facility] Medications Medication Details Route Status Patient Instructions Ordering Provider Order Date Source Acetaminophen 300 MG / Codeine Phosphate 30 MG Oral Tablet [Tylenol with Codeine #3] 1-2 tab, PO, Q6H, PRN for pain, X 3 day, # 24 tab, 0 Refill(s) Active 05/09/2017 [facility] Zofran 4 mg, 2 mL, Route: IVP, Drug form: INJ, ONCE, Dosing Weight 81.818, kg, Priority: STAT, Start date: 05/08/17 23:20:00 CDT, Stop date: 05/08/17 23:20:00 CDTNotes: (Same as: Zofran) MEDICATION WASTE Product Size: 4 mg Product Wasted: ___ mg Inactive 05/09/2017 [facility] Fentanyl 50 microgram, 1 mL, Route: IVP, Drug form: INJ, ONCE, Dosing Weight 81.818, kg, Priority: STAT, Start date: 05/08/17 23:20:00 CDT, Stop date: 05/08/17 23:20:00 CDTNotes: (Same as: Sublimaze) Preservative free. Inactive 05/09/2017 [facility] Fentanyl 25 microgram, 0.5 mL, Route: IVP, Drug form: INJ, ONCE, Dosing Weight 81.818, kg, Priority: STAT, Start date: 05/08/17 20:28:00 CDT, Stop date: 05/08/17 20:28:00 CDTNotes: (Same as: Sublimaze) Preservative free. Inactive 05/09/2017 [facility] Ondansetron 4 mg, 2 mL, Route: IVP, Drug form: INJ, ONCE, Dosing Weight 81.818, kg, Priority: STAT, Start date: 05/08/17 20:26:00 CDT, Stop date: 05/08/17 20:26:00 CDTNotes: (Same as: Zofran) MEDICATION WASTE Product Size: 4 mg Product Wasted: ___ mg Inactive 05/09/2017 [facility] Saline Flush 0.9% 10 mL, Route: IVP, Drug Form: INJ, Dosing Weight 81.818, kg, PRN, PRN Line Flush, Start date: 05/08/17 20:26:00 CDT, Duration: 30 day, Stop date: 06/07/17 20:25:00 CDTNotes: (Same as: BD Posiflush) No Longer Active 05/09/2017 [facility] Losartan 25 mg, 1 tab, Route: PO, Drug form: TAB, Daily, Dosing Weight 83.182, kg, Start date: 04/15/17 9:00:00 CDT, Duration: 30 day, Stop date: 05/14/17 9:00:00 CDTNotes: (Same as: Cozaar) No Longer Active 04/15/2017 [facility] Escitalopram 20 mg, 2 tab, Route: PO, Drug form: TAB, Daily, Dosing Weight 83.182, kg, Start date: 04/15/17 9:00:00 CDT, Duration: 30 day, Stop date: 05/14/17 9:00:00 CDTNotes: (Same as: Lexapro) No Longer Active 04/15/2017 [facility] aspirin 81 mg tablet, enteric coated 81 mg, 1 tab, Route: PO, Drug form: ECTAB, Daily, Dosing Weight 83.182, kg, Start date: 04/15/17 9:00:00 CDT, Duration: 30 day, Stop date: 05/14/17 9:00:00 CDTNotes: Do not crush or chew. (Same As: Ecotrin) No Longer Active 04/15/2017 [facility] 24 HR Nifedipine 90 MG Extended Release Tablet 90 mg, 1 tab, Route: PO, Drug form: ERTAB, Daily, Dosing Weight 83.182, kg, Start date: 04/15/17 9:00:00 CDT, Duration: 30 day, Stop date: 05/14/17 9:00:00 CDTNotes: (Same as: Adalat CC,Procardia XL) "Do Not Crush" "Avoid grapefruit and grapefruit juice" No Longer Active 04/15/2017 [facility] 24 HR rivastigmine 0.192 MG/HR Transdermal Patch 4.6 mg, 1 patch, Route: TOP, Drug form: ERFILM, Daily, Dosing Weight 83.182, kg, Start date: 04/15/17 9:00:00 CDT, Duration: 30 day, Stop date: 05/14/17 9:00:00 CDTNotes: Same as Exelon "Remove old patch before application of new patch" No Longer Active 04/15/2017 [facility] pantoprazole 40 mg, 1 tab, Route: PO, Drug form: ECTAB, Daily, Dosing Weight 83.182, kg, Start date: 04/15/17 9:00:00 CDT, Duration: 30 day, Stop date: 05/14/17 9:00:00 CDTNotes: Tablet should not be chewed or cr ushed. (Same as: Protonix) No Longer Active 04/15/2017 [facility] atorvastatin 40 mg, 1 tab, Route: PO, Drug form: TAB, Bedtime, Dosing Weight 83.182, kg, Start date: 04/14/17 21:00:00 CDT, Duration: 30 day, Stop date: 05/13/17 21:00:00 CDTNotes: (Same as: Lipitor) Inactive 04/15/2017 [facility] metoprolol tartrate 100 mg, 1 tab, Route: PO, Drug form: TAB, Q12H, Dosing Weight 83.182, kg, Start date: 04/14/17 21:00:00 CDT, Duration: 30 day, Stop date: 05/14/17 9:00:00 CDTNotes: (Same as: Lopressor) Inactive 04/15/2017 [facility] Hydralazine Hydrochloride 25 MG Oral Tablet 25 mg, 1 tab, Route: PO, Drug form: TAB, TID, Dosing Weight 83.182, kg, Start date: 04/14/17 17:00:00 CDT, Duration: 30 day, Stop date: 05/14/17 13:00:00 CDTNotes: (Same as: Apresoline) May interfere w/enteral feedings Take With Food. Inactive 04/14/2017 [facility] glimepiride 2 mg, Route: PO, BID, Dosing Weight 83.182, kg, Start date: 04/14/17 17:00:00 CDT, Duration: 30 day, Stop date: 05/14/17 9:00:00 CDT Inactive 04/14/2017 [facility] gabapentin 300 mg, 1 cap, Route: PO, Drug form: CAP, TID, Dosing Weight 83.182, kg, Start date: 04/14/17 17:00:00 CDT, Duration: 30 day, Stop date: 05/14/17 13:00:00 CDTNotes: (Same as: Neurontin) Inactive 04/14/2017 [facility] Acetaminophen 300 MG / Codeine Phosphate 30 MG Oral Tablet [Tylenol with Codeine #3] 1 tab, PO, Q6H, PRN Pain, X 7 day, # 28 tab, 0 Refill(s) Active 04/14/2017 [facility] Furosemide 20 MG Oral Tablet 20 mg, 1 tab, Route: PO, Drug form: TAB, Daily, Dosing Weight 83.182, kg, PRN Edema, Start date: 04/14/17 14:03:00 CDT, Duration: 30 day, Stop date: 05/14/17 14:02:00 CDTNotes: (Same as: Lasix) May cause GI upset. Give with food or milk. Inactive 04/14/2017 [facility] Clonazepam 0.5 mg, 1 tab, Route: PO, Drug form: TAB, BID, Dosing Weight 83.182, kg, PRN Anxiety, Start date: 04/14/17 14:03:00 CDT, Duration: 30 day, Stop date: 05/14/17 14:02:00 CDTNotes: (Same As: KlonoPIN) Inactive 04/14/2017 [facility] tizanidine 4 mg, 1 tab, Route: PO, Drug form: TAB, Q8H, Dosing Weight 83.182, kg, PRN as needed for muscle spasm, Start date: 04/14/17 14:03:00 CDT, Duration: 30 day, Stop date: 05/14/17 14:02:00 CDTNotes: (Same As: Zanaflex) Inactive 04/14/2017 [facility] potassium chloride 40 mEq, 2 tab, Route: PO, Drug form: ERTAB, ONCE, Dosing Weight 83.182, kg, Start date: 04/14/17 10:58:00 CDT, Stop date: 04/14/17 10:58:00 CDTNotes: (Same as: K-Dur 20) "Do Not Crush" With food and full glass of water Inactive 04/14/2017 [facility] metoprolol tartrate 100 mg oral tablet 100 mg=1 tab, PO, BID, # 60 tab, 0 Refill(s) Active 04/14/2017 [facility] Hydralazine Hydrochloride 25 MG Oral Tablet 25 mg=1 tab, PO, TID, 0 Refill(s) Active 04/14/2017 [facility] Furosemide 20 MG Oral Tablet 20 mg=1 tab, PO, Daily, PRN Edema, 0 Refill(s) Active 04/14/2017 [facility] 24 HR rivastigmine 0.192 MG/HR Transdermal Patch =1 patch, TOP, Daily, apply to skin, # 30 patch, 1 Refill(s) Active 04/14/2017 [facility] escitalopram 20 mg oral tablet 20 mg=1 tab, PO, Daily, # 30 tab, 0 Refill(s) Active 04/14/2017 [facility] tramadol hydrochloride 50 MG Oral Tablet 50 mg=1 tab, PO, Q6H, PRN Pain, # 40 tab, 0 Refill(s) Inactive 04/14/2017 [facility] losartan 25 mg oral tablet 25 mg=1 tab, PO, Daily, # 30 tab, 0 Refill(s) Active 04/14/2017 [facility] clonazePAM 0.5 mg oral tablet 0.5 mg=1 tab, PO, BID, PRN Anxiety, 0 Refill(s) Active 04/14/2017 [facility] 24 HR Nifedipine 90 MG Extended Release Tablet 90 mg=1 tab, PO, Daily, 0 Refill(s) Active 04/14/2017 [facility] Saline Flush 0.9% 10 ml, Route: IVP, Drug Form: INJ, Dosing Weight 82.818, kg, Q12H, Start date: 04/14/17 9:00:00 CDT, Duration: 30 day, Stop date: 05/13/17 21:00:00 CDTNotes: (Same as: BD Posiflush) Inactive 04/14/2017 [facility] Saline Flush 0.9% 10 ml, Route: IVP, Drug Form: INJ, Dosing Weight 82.818, kg, PRN, PRN Line Flush, Start date: 04/14/17 7:33:00 CDT, Duration: 30 day, Stop date: 05/14/17 7:32:00 CDTNotes: (Same as: BD Posiflush) Inactive 04/14/2017 [facility] Nitroglycerin 0.4 mg, 1 tab, Route: SL, Drug form: TAB, Q5Min, Dosing Weight 82.818, kg, PRN Chest Pain, Start date: 04/14/17 7:33:00 CDT, Duration: 3 doses or times, Stop date: Limited # of timesNotes: (Same as:N itroquick, Nitrostat) "Do Not Crush" Sublingual tablet Inactive 04/14/2017 [facility] Ondansetron 4 mg, 1 tab, Route: PO, Drug form: TAB, Q8H, Dosing Weight 82.818, kg, PRN Nausea & Vomiting, Start date: 04/14/17 7:33:00 CDT, Duration: 30 day, Stop date: 05/14/17 7:32:00 CDTNotes: (Same as: Zofran) Inactive 04/14/2017 [facility] Aspirin 325 mg, 1 tab, Route: PO, Drug form: TAB, ONCE, Dosing Weight 82.818, kg, Priority: STAT, Start date: 04/14/17 6:12:00 CDT, Stop date: 04/14/17 6:12:00 CDTNotes: Take with food. Inactive 04/14/2017 [facility] Ondansetron 4 mg, 2 mL, Route: IVP, Drug form: INJ, ONCE, Dosing Weight 82.818, kg, Priority: STAT, Start date: 04/14/17 6:04:00 CDT, Stop date: 04/14/17 6:04:00 CDTNotes: (Same as: Zofran) MEDICATION WASTE * Product Size: 4 mg Product Wasted: ___ mg Inactive 04/14/2017 [facility] Acetaminophen 325 MG / Hydrocodone Bitartrate 10 MG Oral Tablet [[place] 10/325] 1 tab, Route: PO, Drug Form: TAB, Dosing Weight 82.818, kg, ONCE, STAT, Start date: 04/14/17 6:04:00 CDT, Stop date: 04/14/17 6:04:00 CDTNotes: Do not exceed 4gm/day of acetaminophen. (Same as: [place] 325/10) Inactive 04/14/2017 [facility] Ceftriaxone 1 gm, Route: IVPB, Drug form: PDR/INJ, ONCE, Dosing Weight 82.818, kg, Priority: STAT, Start date: 04/14/17 5:57:00 CDT, Duration: 1 doses or times, Stop date: 04/14/17 5:57:00 CDT, ABX Indication: U rinary Tract InfectionNotes: (Same As: Rocephin). Use with 100 mL NS and infuse over 30 min MEDICATION WASTE Product Size: 1000 mg Product Wasted: ___ mg Inactive 04/14/2017 [facility] Morphine 4 mg, 1 mL, Route: IVP, Drug form: INJ, ONCE, Dosing Weight 82.818, kg, Priority: STAT, Start date: 04/14/17 5:11:00 CDT, Stop date: 04/14/17 5:11:00 CDTNotes: (Same as:MORPhine Sulfate) Inactive 04/14/2017 [facility] potassium chloride 40 mEq, 2 tab, Route: PO, Drug form: ERTAB, ONCE, Dosing Weight 82.818, kg, Priority: STAT, Start date: 04/14/17 4:26:00 CDT, Stop date: 04/14/17 4:26:00 CDTNotes: (Same as: K-Dur 20) "Do Not Crush" With food and full glass of water Inactive 04/14/2017 [facility] Ondansetron 4 mg, 2 mL, Route: IVP, Drug form: INJ, ONCE, Dosing Weight 82.818, kg, Priority: STAT, Start date: 04/14/17 3:05:00 CDT, Stop date: 04/14/17 3:05:00 CDTNotes: (Same as: Tova) MEDICATION WASTE * Product Size: 4 mg Product Wasted: ___ mg Inactive 04/14/2017 [facility] Morphine 4 mg, 1 mL, Route: IVP, Drug form: INJ, ONCE, Dosing Weight 82.818, kg, Priority: STAT, Start date: 04/14/17 3:05:00 CDT, Stop date: 04/14/17 3:05:00 CDTNotes: (Same as:MORPhine Sulfate) Inactive 04/14/2017 [facility] Saline Flush 0.9% 10 mL, Route: IVP, Drug Form: INJ, Dosing Weight 82.818, kg, PRN, PRN Line Flush, Start date: 04/14/17 3:05:00 CDT, Duration: 30 day, Stop date: 05/14/17 3:04:00 CDTNotes: (Same as: BD Posiflush) Inactive 04/14/2017 [facility] Alprazolam 0.25 MG Oral Tablet [Xanax] 0.25 mg=1 tab, PO, BID, PRN Nausea & Vomiting, # 10 tab, 0 Refill(s) Active 11/28/2015 [facility] potassium chloride 10 mEq, 100 mL, Route: IVPB, Drug form: INJ, ONCE, Dosing Weight 67.528, kg, Start date: 11/28/15 13:36:00, Stop date: 11/28/15 13:36:00Notes: Infuse at a rate of 10 mEq/hr. (Same as: KCL) Inactive 11/28/2015 [facility] Sodium Chloride 0.154 MEQ/ML Injectable Solution 500 mL, 500 ml/hr, Infuse Over: 1 hr, Route: IV, 500, Drug form: INJ, ONCE, Priority: STAT, Dosing Weight 67.528 kg, Start date: 11/28/15 13:22:00, Duration: 1 doses or times, Stop date: 11/28/15 13:22:00 Inactive 11/28/2015 [facility] potassium chloride 20 mEq, Route: PO, Drug form: ERTAB, ONCE, Dosing Weight 67.528, kg, Priority: STAT, Start date: 11/28/15 13:21:00, Stop date: 11/28/15 13:21:00 Inactive 11/28/2015 [facility] morphine Sulfate 4 mg, 1 mL, Route: IV, Drug form: INJ, ONCE, Start date: 11/28/15 13:00:00, Stop date: 11/28/15 13:00:00Notes: (Same as:MORPhine Sulfate) Inactive 11/28/2015 [facility] Fentanyl 50 microgram, Route: IVP, ONCE, Dosing Weight 67.528, kg, Priority: STAT, Start date: 11/28/15 12:44:00, Stop date: 11/28/15 12:44:00 Inactive 11/28/2015 [facility] Ativan 1 mg, 0.5 mL, Route: IVP, Drug form: INJ, ONCE, Dosing Weight 67.528, kg, Priority: STAT, Start date: 11/28/15 11:56:00, Stop date: 11/28/15 11:56:00Notes: (Same as: Ativan) Inactive 11/28/2015 [facility] Morphine 6 mg, 0.6 mL, Route: IVP, Drug form: INJ, ONCE, Dosing Weight 67.528, kg, Priority: STAT, Start date: 11/28/15 11:54:00, Stop date: 11/28/15 11:54:00Notes: (Same as:MORPhine Sulfate) Inactive 11/28/2015 [facility] Reglan 10 mg, Route: IVP, Drug form: INJ, ONCE, Dosing Weight 67.528, kg, Priority: STAT, Start date: 11/28/15 11:54:00, Stop date: 11/28/15 11:54:00 Inactive 11/28/2015 [facility] Benadryl 25 mg, Route: IVP, ONCE, Dosing Weight 67.528, kg, Priority: STAT, Start date: 11/28/15 11:54:00, Stop date: 11/28/15 11:54:00 Inactive 11/28/2015 [facility] Saline Flush 0.9% 10 mL, Route: IVP, Drug Form: INJ, Dosing Weight 69.864, kg, PRN, PRN Line Flush, Start date: 11/28/15 11:29:00, Duration: 30 day, Stop date: 12/28/15 12:28:00Notes: (Same as: BD Posiflush) Inactive 11/28/2015 [facility] Aspirin 81 MG Enteric Coated Tablet 81 mg=1 tab, PO, Daily, 0 Refill(s) Active 11/24/2015 [facility] Zofran ODT 4 mg, 1 tab, Route: PO, Drug form: TABDIS, Q8H, Dosing Weight 69.864, kg, PRN as needed for nausea/vomiting, Start date: 11/22/15 11:36:00, Duration: 30 day, Stop date: 12/22/15 11:35:00Notes: (Same as: Zofran ODT) No Longer Active 11/22/2015 [facility] D5W 1/2NS 1,000 mL 1,000 mL, Rate: 40 ml/hr, Infuse over: 25 hr, Route: IV, Dosing Weight 69.864 kg, Total Volume: 1,000, Start date: 11/22/15 11:29:00, Duration: 30 day, Stop date: 12/22/15 11:28:00 No Longer Active 11/22/2015 [facility] D5W 1/2NS 1,000 mL 1,000 mL, Rate: 60 ml/hr, Infuse over: 16.7 hr, Route: IV, Dosing Weight 69.864 kg, Total Volume: 1,000, Start date: 11/22/15 10:06:00, Duration: 30 day, Stop date: 12/22/15 10:05:00 Inactive 11/22/2015 [facility] Zofran ODT 4 mg, 1 tab, Route: PO, Drug form: TABDIS, TID, Dosing Weight 69.864, kg, Start date: 11/22/15 9:00:00, Duration: 30 day, Stop date: 12/21/15 17:00:00Notes: (Same as: Zofran ODT) Inactive 11/22/2015 [facility] Phenergan 12.5 mg, 0.5 tab, Route: PO, Drug form: TAB, Q4H, Dosing Weight 69.864, kg, PRN Nausea & Vomiting, Start date: 11/22/15 8:47:00, Duration: 30 day, Stop date: 12/22/15 8:46:00Notes: (Same as: Phenerga n) No Longer Active 11/22/2015 [facility] Zofran 4 mg, 2 mL, Route: IV, Drug form: INJ, Q8H, Dosing Weight 72, kg, PRN Nausea, Start date: 11/22/15 8:46:00, Duration: 30 day, Stop date: 12/22/15 8:45:00, for nauseaNotes: (Same as: Zofran) MEDICATION WASTE Product Size: 4 mg Product Wasted: ___ mg No Longer Active 11/22/2015 [facility] Zofran 4 mg, 2 mL, Route: IVP, Drug form: INJ, ONCE, Dosing Weight 69.864, kg, Start date: 11/21/15 15:49:00, Stop date: 11/21/15 15:49:00Notes: (Same as: Zofran) MEDICATION WASTE Product Size: 4 mg Product Wasted: ___ mg Inactive 11/21/2015 [facility] isosorbide mononitrate extended release 30 mg, 1 tab, Route: PO, Drug form: ERTAB, Daily, Dosing Weight 69.864, kg, Start date: 11/21/15 9:00:00, Duration: 30 day, Stop date: 12/20/15 9:00:00Notes: (Same as:Imdur) "Do Not Crush" Take on empty stomach/ full glass of water. Do not crush No Longer Active 11/21/2015 [facility] Aspirin 81 MG Enteric Coated Tablet 81 mg, 1 tab, Route: PO, Drug form: ECTAB, Daily, Dosing Weight 69.864, kg, Start date: 11/21/15 9:00:00, Duration: 30 day, Stop date: 12/20/15 9:00:00Notes: Do not crush or chew. (Same As: Ecotrin) No Longer Active 11/21/2015 [facility] Phenergan 12.5 mg, 50 mL, Route: IVPB, Drug form: SOLN, Q6H, Dosing Weight 69.864, kg, PRN Nausea & Vomiting, Start date: 11/20/15 22:24:00, Duration: 30 day, Stop date: 12/20/15 22:23:00 No Longer Active 11/21/2015 [facility] metoprolol tartrate 100 mg, 1 tab, Route: PO, Drug form: TAB, Q12H, Dosing Weight 69.864, kg, Start date: 11/20/15 21:00:00, Duration: 30 day, Stop date: 12/20/15 9:00:00Notes: (Same as: Lopressor) No Longer Active 11/21/2015 [facility] atorvastatin 20 mg, Route: PO, Drug form: TAB, Bedtime, Dosing Weight 69.864, kg, Start date: 11/20/15 21:00:00, Duration: 30 day, Stop date: 12/19/15 21:00:00 Inactive 11/21/2015 [facility] Demerol HCl 25 mg, 1 mL, Route: IVP, Drug form: INJ, Q30Min, Dosing Weight 69.864, kg, PRN Pain Score 4-6, Start date: 11/20/15 18:40:00, Duration: 2 doses or times, Stop date: Limited # of timesNotes: (Same as: Palm) "Use Precaution in Elderly, Seizure disorders, and Renal impairment" No Longer Active 11/21/2015 [facility] Sodium Chloride 0.154 MEQ/ML Injectable Solution 1,000 mL, Rate: 10 ml/hr, Infuse over: 100 hr, Route: IV, Dosing Weight 69.864 kg, Total Volume: 1,000, Start date: 11/20/15 14:02:00, Duration: 30 day, Stop date: 12/20/15 14:01:00 No Longer Active 11/20/2015 [facility] Zofran 4 mg, 2 mL, Route: IV, Drug form: INJ, Q8H, Dosing Weight 69.864, kg, PRN Nausea, Start date: 11/20/15 13:52:00, Duration: 30 day, Stop date: 12/20/15 13:51:00Notes: (Same as: Zofran) MEDICATION WASTE Product Size: 4 mg Product Wasted: ___ mg Inactive 11/20/2015 [facility] Morphine 2 mg, 1 mL, Route: IV, Drug form: INJ, Q30Min, Dosing Weight 69.864, kg, PRN Pain Score 4-6, Start date: 11/20/15 13:52:00, Duration: 30 day, Stop date: 12/20/15 14:51:00Notes: (Same as:MORPhine Sulfate) No Longer Active 11/20/2015 [facility] Nitroglycerin 0.4 mg, Route: SL, Drug form: TAB, Q5Min, Dosing Weight 69.864, kg, PRN Chest Pain, Start date: 11/20/15 13:48:00, Duration: 3 doses or times, Stop date: Limited # of times Inactive 11/20/2015 [facility] potassium chloride 40 mEq, 2 tab, Route: PO, Drug form: ERTAB, ONCE, Dosing Weight 72, kg, Start date: 11/20/15 6:22:00, Stop date: 11/20/15 6:22:00Notes: (Same as: K-Dur 20) "Do Not Crush" With food and full glass of water Inactive 11/20/2015 [facility] Sodium Chloride 0.9% IV 750 mL 750 mL, Rate: 75 ml/hr, Infuse over: 10 hr, Route: IV, Dosing Weight 72 kg, Total Volume: 750, Start date: 11/19/15 20:00:00, Duration: 10 hr, Stop date: 11/20/15 5:59:00 No Longer Active 11/20/2015 [facility] Potassium Chloride 1.33 MEQ/ML Oral Solution 40 mEq, 30 mL, Route: PO, Drug form: LIQ, ONCE, Dosing Weight 72, kg, Start date: 11/19/15 11:11:00, Stop date: 11/19/15 11:11:00Notes: (Same as: Potassium Chloride) Inactive 11/19/2015 [facility] Sodium Chloride 0.154 MEQ/ML Injectable Solution 250 mL, 250 ml/hr, Infuse Over: 1 hr, Route: IV, 250, Drug form: INJ, ONCALL, Priority: Routine, Dosing Weight 72 kg, Start date: 11/19/15 9:00:00, Duration: 1 doses or times No Longer Active 11/19/2015 [facility] Sodium Chloride 0.154 MEQ/ML Injectable Solution 750 mL, Rate: 75 ml/hr, Infuse over: 10 hr, Route: IV, Dosing Weight 72 kg, Total Volume: 750, Start date: 11/19/15 8:01:00, Duration: 10 hr, Stop date: 11/19/15 18:00:00 Inactive 11/19/2015 [facility] Diphenhydramine 50 mg, 2 tab, Route: PO, Drug form: TAB, ONCE, Dosing Weight 72, kg, Administer when patient is called for by Community Development Manager., Start date: 11/19/15 8:01:00, Stop date: 11/19/15 8:01:00 No Longer Active 11/19/2015 [facility] Zofran 4 mg, 2 mL, Route: IV, Drug form: INJ, Q8H, Dosing Weight 72, kg, PRN Nausea, Start date: 11/18/15 18:16:00, Duration: 30 day, Stop date: 12/18/15 18:15:00, for nauseaNotes: (Same as: Zofran) MEDI CATION WASTE Product Size: 4 mg Product Wasted: ___ mg No Longer Active 11/19/2015 [facility] Lorazepam 0.5 mg, 1 tab, Route: PO, Drug form: TAB, Q8H, Dosing Weight 72, kg, PRN Other -See Comment, Start date: 11/18/15 17:18:00, Duration: 30 day, Stop date: 12/18/15 17:17:00, for anxietyNotes: (Same as: Ativan) No Longer Active 11/18/2015 [facility] Lactulose 30 gm, 45 mL, Route: PO, Drug Form: SYRP, Dosing Weight 72, kg, Q6H, PRN See Nurse's Notes, Start date: 11/18/15 13:55:00, Duration: 30 day, Stop date: 12/18/15 13:54:00, for constipationNotes: (Same as:Chronulac) No Longer Active 11/18/2015 [facility] tramadol hydrochloride 50 MG Oral Tablet 50 mg, 1 tab, Route: PO, Drug form: TAB, Q6H, Dosing Weight 72, kg, PRN Pain Score 1-3, Start date: 11/18/15 11:43:00, Duration: 30 day, Stop date: 12/18/15 11:42:00Notes: Not to exceed 400mg/day. (Same As: Ultram) No Longer Active 11/18/2015 [facility] Amlodipine 10 mg, 2 tab, Route: PO, Drug form: TAB, Daily, Dosing Weight 72, kg, Start date: 11/18/15 9:00:00, Duration: 30 day, Stop date: 12/17/15 9:00:00Notes: (Same as: Norvasc) No Longer Active 11/18/2015 [facility] pantoprazole 40 mg, 1 tab, Route: PO, Drug form: ECTAB, Daily, Dosing Weight 72, kg, Start date: 11/18/15 9:00:00, Duration: 30 day, Stop date: 12/17/15 9:00:00Notes: Tablet should not be chewed or crushed. (Same as: Protonix) No Longer Active 11/18/2015 [facility] Acetaminophen 325 MG / Hydrocodone Bitartrate 5 MG Oral Tablet 1 tab, Route: PO, Drug Form: TAB, Dosing Weight 72, kg, Q6H, PRN Pain Score 1-3, Start date: 11/18/15 8:36:00, Duration: 30 day, Stop date: 12/18/15 8:35:00Notes: (Same as: [place] 325/5) Do not exceed 4gm/day of acetaminophen. No Longer Active 11/18/2015 [facility] glimepiride 2 mg, 1 tab, Route: PO, Drug form: TAB, BID- Before Meals, Dosing Weight 72, kg, Start date: 11/18/15 7:30:00, Duration: 30 day, Stop date: 12/17/15 16:30:00Notes: (Same as: Amaryl) No Longer Active 11/18/2015 [facility] gabapentin 100 mg, 1 cap, Route: PO, Drug form: CAP, TID, Dosing Weight 72, kg, Start date: 11/17/15 22:00:00, Duration: 30 day, Stop date: 12/17/15 14:00:00Notes: (Same as: Neurontin) No Longer Active 11/18/2015 [facility] atorvastatin 20 mg, 2 tab, Route: PO, Drug form: TAB, Bedtime, Dosing Weight 72, kg, Start date: 11/17/15 21:00:00, Duration: 30 day, Stop date: 12/16/15 21:00:00Notes: (Same As: Lipitor) No Longer Active 11/18/2015 [facility] Insulin, Aspart, Human 6 unit, 0.06 mL, Route: SUB-Q, Drug form: SOLN, Bedtime, Dosing Weight 72, kg, Start date: 11/17/15 21:00:00, Duration: 30 day, Stop date: 12/16/15 21:00:00Notes: Roll in palms of hands gently; Do not shake vigorously. (Same as: NovoLOG) "single patient use only" WASTE: F/P - Black; E - Municipal Trash Bin Stable for 28 days at room temperature. Expires in days from Date No Longer Active 11/18/2015 [facility] Lopressor 100 mg, 1 tab, Route: PO, Drug form: TAB, Q12H, Dosing Weight 72, kg, Start date: 11/17/15 21:00:00, Duration: 30 day, Stop date: 12/17/15 9:00:00Notes: (Same as: Lopressor) No Longer Active 11/18/2015 [facility] Saline Flush 0.9% 10 ml, Route: IVP, Drug Form: INJ, Dosing Weight 72, kg, Q12H, Start date: 11/17/15 21:00:00, Duration: 30 day, Stop date: 12/17/15 9:00:00Notes: (Same as: BD Posiflush) No Longer Active 11/18/2015 [facility] Losartan 100 mg, 2 tab, Route: PO, Drug form: TAB, Daily, Dosing Weight 72, kg, Start date: 11/17/15 20:00:00, Duration: 30 day, Stop date: 12/17/15 9:00:00Notes: (Same as: Cozaar) No Longer Active 11/18/2015 [facility] Aspirin 325 mg, 1 tab, Route: PO, Drug form: TAB, Daily, Dosing Weight 72, kg, Start date: 11/17/15 20:00:00, Duration: 30 day, Stop date: 12/17/15 9:00:00Notes: Take with food. No Longer Active 11/18/2015 [facility] tizanidine 4 mg, 1 tab, Route: PO, Drug form: TAB, Q8H, Dosing Weight 72, kg, PRN as needed for muscle spasm, Start date: 11/17/15 18:51:00, Duration: 30 day, Stop date: 12/17/15 18:50:00Notes: (Same As: Zanafl ex) No Longer Active 11/18/2015 [facility] Heparin 30 unit/kg Bolus (Heparin Dosing Weight) Route: IVP, PRN, 1,800 unit, 1.8 mL, Drug form: INJ, PRN, Heparin Protocol, Start date: 11/17/15 18:47:00 Stop date: 12/17/15 19:46:00, 30 day No Longer Active 11/18/2015 [facility] Heparin - one time bolus for ACS 3,500 unit, 3.5 mL, Route: IV, Drug form: INJ, ONCE, Dosing Weight 72, kg, Priority: STAT, Start date: 11/17/15 18:47:00, Stop date: 11/17/15 18:47:00 Inactive 11/18/2015 [facility] heparin additive 25,000 unit [12 unit/kg/hr] + Premix Diluent Dextrose 5% 500 mL 500 mL, Rate: 14.13 ml/hr, Infuse over: 35.4 hr, Route: IV, Dosing Weight 58.86 kg, Total Volume: 500 mL, Start date: 11/17/15 18:47:00, Duration: 30 day, Stop date: 12/17/15 18:46:00 No Longer Active 11/18/2015 [facility] Heparin 60 unit/kg Bolus (Heparin Dosing Weight) Route: IVP, PRN, 3,500 unit, 3.5 mL, Drug form: INJ, PRN, Heparin Protocol, Start date: 11/17/15 18:47:00 Stop date: 12/17/15 19:46:00, 30 day No Longer Active 11/18/2015 [facility] glimepiride 2 mg, PO, BID, before meals, 0 Refill(s) Active 11/17/2015 [facility] tizanidine 4 mg oral tablet 4 mg=1 tab, PO, Q8H, PRN as needed for muscle spasm, 0 Refill(s) Active 11/17/2015 [facility] losartan 50 mg oral tablet 100 mg=2 tab, PO, Daily, 0 Refill(s) Active 11/17/2015 [facility] Insulin, Aspart, Human 6 unit, SUB-Q, Bedtime, 0 Refill(s) Active 11/17/2015 [facility] Amlodipine 10 mg, PO, Daily, 0 Refill(s) Active 11/17/2015 [facility] metoprolol tartrate 50 mg oral tablet 100 mg=2 tab, PO, BID, 0 Refill(s) Active 11/17/2015 [facility] gabapentin 300 mg, PO, TID, 0 Refill(s) Active 11/17/2015 [facility] pantoprazole 40 mg, PO, Daily, before breakfast, # 30 tab, 0 Refill(s) Active 11/17/2015 [facility] atorvastatin 20 mg, PO, Bedtime, 0 Refill(s) Active 11/17/2015 [facility] potassium chloride 40 mEq, 2 tab, Route: PO, Drug form: ERTAB, ONCE, Dosing Weight 72, kg, Start date: 11/17/15 16:05:00, Stop date: 11/17/15 16:05:00Notes: (Same as: K-Dur 20) "Do Not Crush" With food and full glass of water Inactive 11/17/2015 [facility] Ceftriaxone 1 gm, Route: IVPB, [id number], Dosing Weight 77.273, kg, Start date: 11/17/15 16:00:00, Duration: 30 day, Stop date: 12/16/15 21:00:00Notes: (Same As: Rocephin). Use with 100 mL NS and infuse over 30 min MEDICATION WASTE Product Size: 1000 mg Product Wasted: ___ mg No Longer Active 11/17/2015 [facility] Saline Flush 0.9% 10 ml, Route: IVP, Drug Form: INJ, Dosing Weight 72, kg, PRN, PRN Line Flush, Start date: 11/17/15 15:59:00, Duration: 30 day, Stop date: 12/17/15 16:58:00Notes: (Same as: BD Posiflush) No Longer Active 11/17/2015 [facility] Nitroglycerin 0.4 mg, 1 tab, Route: SL, Drug form: TAB, Q5Min, Dosing Weight 72, kg, PRN Chest Pain, Start date: 11/17/15 15:59:00, Duration: 3 doses or times, Stop date: Limited # of timesNotes: (Same as:Nitroquick, Nitrostat) "Do Not Crush" Sublingual tablet No Longer Active 11/17/2015 [facility] Insulin, Aspart, Human 6 unit, 0.06 mL, Route: SUB-Q, Drug form: SOLN, TID-Before Meals, Dosing Weight 72, kg, PRN Blood Glucose Results, Start date: 11/17/15 15:58:00, Duration: 30 day, Stop date: 12/17/15 15:57:00Notes: Roll in palms of hands gently; Do not shake vigorously. (Same as: NovoLOG) "single patient use only" WASTE: F/P - Black; E - Municipal Trash Bin Stable for 28 days at room temperature. Expires in days from Date No Longer Active 11/17/2015 [facility] Dextrose 50% Syringe 12.5 gm, 25 mL, Route: IVP, Drug Form: INJ, Dosing Weight 72, kg, PRN, PRN Blood Glucose Results, Start date: 11/17/15 15:58:00, Duration: 30 day, Stop date: 12/17/15 16:57:00 No Longer Active 11/17/2015 [facility] Glucagon 1 mg, Route: IM, Drug form: PDR/INJ, PRN, Dosing Weight 72, kg, PRN Blood Glucose Results, Start date: 11/17/15 15:58:00, Duration: 30 day, Stop date: 12/17/15 16:57:00 No Longer Active 11/17/2015 [facility] Saline Flush 0.9% 10 mL, Route: IVP, Drug Form: INJ, Dosing Weight 77.273, kg, PRN, PRN Line Flush, Start date: 11/17/15 10:52:00, Duration: 30 day, Stop date: 12/17/15 11:51:00Notes: (Same as: BD Posiflush) No Longer Active 11/17/2015 [facility] Sodium Chloride 0.154 MEQ/ML Injectable Solution 1,000 mL, 1000 ml/hr, Infuse Over: 1 hr, Route: IV, 1,000, Drug form: INJ, ONCE, Priority: STAT, Dosing Weight 77.273 kg, Start date: 11/17/15 10:52:00, Duration: 1 doses or times, Stop date: 11/17/15 10:52:00 Inactive 11/17/2015 [facility] Allergies, Adverse Reactions, Alerts Substance Category Reaction Severity Reaction type Status Date Reported Comments Source Ambien Assertion Drug allergy Active [facility] azithromycin Assertion Drug allergy Active [facility] morphine Assertion Drug allergy Active [facility] Immunizations Immunization Date Given Site Status Last Updated Comments Source Results Order Name Results Value Reference Range Date Interpretation Comments Source CARDIAC ENZYMES Total CK 109 unit/L 12 - 191 05/09/2017 [facility] CARDIAC ENZYMES Troponin-I null 0.00 - 0.40 05/09/2017 [facility] CARDIAC ENZYMES CK MB 1.0 ng/mL 0.5 - 3.6 05/09/2017 [facility] CARDIAC ENZYMES CK MB Index 0.9 0.0 - 2.5 05/09/2017 [facility] CHEM PANEL eGFR 56 mL/min/1.73m2 05/09/2017 Result Comment: The eGFR is calculated using the [...] from the National Kidney Disease Education Program (NKDEP) which additionally recommends that when the eGFR is used in patients with extremes of body mass index for purposes of drug dosing, the eGFR should be multiplied by the estimated BMI. [facility] CHEM PANEL Potassium Lvl 3.5 meq/L 3.5 - 5.1 05/09/2017 [facility] CHEM PANEL Albumin Lvl 3.5 g/dL 3.5 - 5.0 05/09/2017 [facility] CHEM PANEL CO2 26 meq/L 24 - 32 05/09/2017 [facility] CHEM PANEL Total Protein 7.2 g/dL 6.4 - 8.4 05/09/2017 [facility] CHEM PANEL Chloride Lvl 103 meq/L 95 - 109 05/09/2017 [facility] CHEM PANEL Calcium Lvl 9.1 mg/dL 8.5 - 10.5 05/09/2017 [facility] CHEM PANEL Sodium Lvl 138 meq/L 135 - 145 05/09/2017 [facility] CHEM PANEL Glucose Lvl 160 mg/dL 70 - 99 05/09/2017 [facility] CHEM PANEL Creatinine Lvl 1.03 mg/dL 0.50 - 1.40 05/09/2017 [facility] CHEM PANEL BUN 13 mg/dL 7 - 22 05/09/2017 [facility] CHEM PANEL B/C Ratio 13 6 - 25 05/09/2017 [facility] CHEM PANEL A/G Ratio 0.9 0.7 - 1.6 05/09/2017 [facility] CHEM PANEL Globulin 3.7 g/dL 2.7 - 4.2 05/09/2017 [facility] CHEM PANEL Alk Phos 142 unit/L 39 - 136 05/09/2017 [facility] CHEM PANEL AGAP 12.5 meq/L 10.0 - 20.0 05/09/2017 [facility] CHEM PANEL AST 17 unit/L 0 - 37 05/09/2017 [facility] CHEM PANEL Bili Total 0.6 mg/dL 0.2 - 1.3 05/09/2017 [facility] CHEM PANEL ALT 17 unit/L 0 - 65 05/09/2017 [facility] CHEM PANEL Lipase Lvl 50 unit/L 73 - 393 05/09/2017 [facility] HEMATOLOGY Hgb 13.9 g/dL 12.0 - 16.0 05/09/2017 [facility] HEMATOLOGY RBC 4.48 M/CMM 4.20 - 5.40 05/09/2017 [facility] MCHC 34.2 g/dL 32.0 - 36.0 05/09/2017 [facility] Hct 40.6 % 36.0 - 48.0 05/09/2017 [facility] MCV 90.6 fL 80.0 - 98.0 05/09/2017 [facility] WBC 9.5 K/CMM 3.7 - 10.4 05/09/2017 [facility] MPV 11.0 fL 7.4 - 10.4 05/09/2017 [facility] Platelet 167 K/CMM 133 - 450 05/09/2017 [facility] MCH 31.0 pg 27.0 - 31.0 05/09/2017 [facility] RDW 13.4 % 11.5 - 14.5 05/09/2017 [facility] Lymphocytes 16.8 % 20.0 - 40.0 05/09/2017 [facility] Monocytes 6.8 % 2.0 - 12.0 05/09/2017 [facility] Eosinophils 1.0 % 0.0 - 4.0 05/09/2017 [facility] HEMATOLOGY Basophils 0.9 % 0.0 - 1.0 05/09/2017 [facility] Segs 74.5 % 45.0 - 75.0 05/09/2017 [facility] Lymphocytes # 1.6 K/CMM 1.0 - 5.5 05/09/2017 [facility] Segs-Bands # 7.1 K/CMM 1.5 - 8.1 05/09/2017 [facility] Basophils # 0.1 K/CMM 0.0 - 0.2 05/09/2017 [facility] Monocytes # 0.6 K/CMM 0.0 - 0.8 05/09/2017 [facility] Eosinophils # 0.1 K/CMM 0.0 - 0.5 05/09/2017 [facility] Abdomen RUQ US Abdomen RUQ US EXAM: Right upper quadrant ultrasound of the abdomen INDICATION: Abdominal pain in right upper quadrant x3 days COMPARISON: None TECHNIQUE: Grayscale and limited color sonographic evaluation of the abdomen was performed with standard technique. FINDINGS: LIVER: The visualized liver shows normal contour, size, and morphology with normal parenchymal echo texture. No focal hepatic lesions identified. BILE DUCTS: The intrahepatic and extrahepatic bile ducts are not dilated with the common bile duct measuring 3 mm. GALLBLADDER: Multiple gallstones lie posteriorly within the gallbladder. Gallbladder wall is at upper limits of normal in thickness. No gallbladder distention or pericholecystic fluid identified. Sonographic Lantigua's sign is negative. PANCREAS: The pancreas is poorly visualized due to bowel gas. RIGHT KIDNEY: The right kidney measures 9 cm and demonstrates normal echogenicity, contour, and morphology. No hydronephrosis or perinephric fluid collections identified. 2.2 x 2.4 x 2.1 cm simple right renal cyst is noted. AORTA AND INFERIOR VENA CAVA: Visualized portions appear unremarkable. IMPRESSION: Cholelithiasis without convincing sonographic evidence for cholecystitis. Nuclear medicine hepatobiliary scan may be helpful if there is high concern for cholecystitis. SL: ASIF 05/08/2017 - - Read by: Adalberto Hall MD Dictated Date/time: 05/08/17 20:55 Electronically Signed by: Adalberto Hall MD 05/08/17 20:57 FINAL REPORT [facility] CARDIAC ENZYMES Troponin-I null 0.00 - 0.40 04/14/2017 [facility] CARDIAC ENZYMES Total CK 71 unit/L 12 - 191 04/14/2017 [facility] CARDIAC ENZYMES Troponin-I null 0.00 - 0.40 04/14/2017 [facility] CARDIAC ENZYMES Total CK 49 unit/L 12 - 191 04/14/2017 [facility] URINE AND STOOL UA Urobilinogen <=1.0 mg/dL 0.1 - 1.0 04/14/2017 [facility] URINE AND STOOL UA Bacteria Occasional /HPF None Seen /HPF 04/14/2017 [facility] URINE AND STOOL UA Mucus Few /LPF None Seen /LPF 04/14/2017 [facility] URINE AND STOOL UA WBC 39 /HPF 0 - 5 04/14/2017 [facility] URINE AND STOOL UA RBC 13 /HPF 0 - 2 04/14/2017 [facility] URINE AND STOOL UA Hyal Cast 12 /LPF 0 - 2 04/14/2017 [facility] URINE AND STOOL UA Nitrite Negative (04/14/17 4:00 AM) Negative 04/14/2017 [facility] URINE AND STOOL UA Bili Small *ABN* (04/14/17 4:00 AM) Negative 04/14/2017 [facility] URINE AND STOOL UA Blood Moderate *ABN* (04/14/17 4:00 AM) Negative 04/14/2017 [facility] URINE AND STOOL UA Leuk Est Large *ABN* (04/14/17 4:00 AM) Negative 04/14/2017 [facility] URINE AND STOOL UA Sq Epi Few /LPF Few /LPF 04/14/2017 [facility] URINE AND STOOL UA pH 5.0 5.0 - 8.0 04/14/2017 [facility] URINE AND STOOL UA Ketones Negative mg/dL Negative mg/dL 04/14/2017 [facility] URINE AND STOOL UA Protein 30 mg/dL Negative mg/dL 04/14/2017 [facility] URINE AND STOOL UA Glucose 50 mg/dL Negative mg/dL 04/14/2017 [facility] URINE AND STOOL UA Turbidity Marked *ABN* (04/14/17 4:00 AM) Clear 04/14/2017 [facility] URINE AND STOOL UA Color Lisa *ABN* (04/14/17 4:00 AM) Yellow 04/14/2017 [facility] URINE AND STOOL UA Spec Grav 1.025 <=1.030 04/14/2017 [facility] CARDIAC ENZYMES CK MB Index null 0.0 - 2.5 04/14/2017 [facility] CARDIAC ENZYMES CK MB null 0.5 - 3.6 04/14/2017 [facility] CARDIAC ENZYMES Total CK 59 unit/L 12 - 191 04/14/2017 [facility] CARDIAC ENZYMES Troponin-I null 0.00 - 0.40 04/14/2017 [facility] CHEM PANEL Lipase Lvl 59 unit/L 73 - 393 04/14/2017 [facility] CHEM PANEL eGFR 33 mL/min/1.73m2 04/14/2017 Result Comment: The eGFR is calculated using the [...] from the National Kidney Disease Education Program (NKDEP) which additionally recommends that when the eGFR is used in patients with extremes of body mass index for purposes of drug dosing, the eGFR should be multiplied by the estimated BMI. [facility] CHEM PANEL A/G Ratio 1.0 0.7 - 1.6 04/14/2017 [facility] CHEM PANEL AST 13 unit/L 0 - 37 04/14/2017 [facility] CHEM PANEL Alk Phos 167 unit/L 39 - 136 04/14/2017 [facility] CHEM PANEL ALT 17 unit/L 0 - 65 04/14/2017 [facility] CHEM PANEL Bili Total 0.9 mg/dL 0.2 - 1.3 04/14/2017 [facility] CHEM PANEL AGAP 17.7 meq/L 10.0 - 20.0 04/14/2017 [facility] CHEM PANEL Albumin Lvl 4.2 g/dL 3.5 - 5.0 04/14/2017 [facility] CHEM PANEL Calcium Lvl 9.5 mg/dL 8.5 - 10.5 04/14/2017 [facility] CHEM PANEL B/C Ratio 13 6 - 25 04/14/2017 [facility] CHEM PANEL Total Protein 8.6 g/dL 6.4 - 8.4 04/14/2017 [facility] CHEM PANEL Globulin 4.4 g/dL 2.7 - 4.2 04/14/2017 [facility] CHEM PANEL Glucose Lvl 242 mg/dL 70 - 99 04/14/2017 [facility] CHEM PANEL BUN 21 mg/dL 7 - 22 04/14/2017 [facility] CHEM PANEL Creatinine Lvl 1.62 mg/dL 0.50 - 1.40 04/14/2017 [facility] CHEM PANEL Sodium Lvl 135 meq/L 135 - 145 04/14/2017 [facility] CHEM PANEL Chloride Lvl 100 meq/L 95 - 109 04/14/2017 [facility] CHEM PANEL CO2 20 meq/L 24 - 32 04/14/2017 [facility] CHEM PANEL Potassium Lvl 2.7 meq/L 3.5 - 5.1 04/14/2017 Result Comment: Critical Result(s) called to NIKIA ASHBY at 04/14/2017 04:17 by Manuela. Read back OK. [facility] HEMATOLOGY Segs-Bands # 9.1 K/CMM 1.5 - 8.1 04/14/2017 [facility] HEMATOLOGY Basophils 0.7 % 0.0 - 1.0 04/14/2017 [facility] HEMATOLOGY Monocytes # 0.9 K/CMM 0.0 - 0.8 04/14/2017 [facility] HEMATOLOGY Lymphocytes # 2.3 K/CMM 1.0 - 5.5 04/14/2017 [facility] HEMATOLOGY Eosinophils 0.4 % 0.0 - 4.0 04/14/2017 [facility] Basophils # 0.1 K/CMM 0.0 - 0.2 04/14/2017 [facility] Lymphocytes 18.6 % 20.0 - 40.0 04/14/2017 [facility] Monocytes 6.9 % 2.0 - 12.0 04/14/2017 [facility] Segs 73.4 % 45.0 - 75.0 04/14/2017 [facility] WBC 12.3 K/CMM 3.7 - 10.4 04/14/2017 [facility] Hgb 15.8 g/dL 12.0 - 16.0 04/14/2017 [facility] RBC 5.12 M/CMM 4.20 - 5.40 04/14/2017 [facility] MCHC 34.2 g/dL 32.0 - 36.0 04/14/2017 [facility] MCH 30.8 pg 27.0 - 31.0 04/14/2017 [facility] Platelet 231 K/CMM 133 - 450 04/14/2017 [facility] RDW 13.5 % 11.5 - 14.5 04/14/2017 [facility] MCV 90.0 fL 80.0 - 98.0 04/14/2017 [facility] Hct 46.1 % 36.0 - 48.0 04/14/2017 [facility] MPV 11.2 fL 7.4 - 10.4 04/14/2017 [facility] Abdomen RUQ US Abdomen RUQ US Clinical Indication: - upper back pain, RUQ tenderness Comparison: None TECHNIQUE: Grayscale and limited color sonographic evaluation of the right upper quadrant of the abdomen and gallbladder region was performed with standard technique. FINDINGS: LIVER: The visualized liver shows normal contour, size, and morphology with diffusely increased hepatic echotexture. BILE DUCTS: The intrahepatic and extrahepatic bile ducts are not dilated with the common bile duct measuring 3 mm. GALLBLADDER: There are many small stones or gravel identified within the gallbladder, layering posteriorly, with foci of shadowing. There is no sludge, pericholecystic fluid or gallbladder wall thickening. The gallbladder wall measures 2 mm in thickness. No sonographic Lantigua's sign was elicited by the technologist. PANCREAS: The pancreas is not well visualized due to overlying bowel gas. KIDNEY: The right kidney measures 10.0 cm. Cyst is visible in the mid pole cortex of the right kidney measuring 2.3 x 2.1 x 2.0 cm. Renal cortex appears somewhat thinned. There is otherwise normal renal contour and morphology, with normal parenchymal echotexture. There is no hydronephrosis. AORTA: Visualized portions appear unremarkable. ASCITES: There is no right upper quadrant abdominal ascites. IMPRESSION: 1. Cholelithiasis is present without sonographic evidence of cholecystitis. 2. There is fatty infiltration of the liver. 3. Small cortical cyst measuring 2.3 cm in greatest diameter is noted at the midpole of the right kidney. 4. Right kidney may be slightly atrophic. SL: 82 04/14/2017 - - Read by: Huy Mixon MD Dictated Date/time: 04/14/17 04:42 Electronically Signed by: Huy Mixon MD 04/14/17 04:[address] [facility] 1view DX Chest 1view DX Clinical Indication: - upper back pain Comparison: November 28, 2015 FINDINGS: The frontal chest radiograph shows normal lung volumes without interstitial or airspace opacities, pleural effusions or pneumothorax. The cardiomediastinal contours are highly enlarged without evidence of pulmonary vascular congestion. There has been interval removal of the right internal jugular dialysis catheter. IMPRESSION: 1. There is stable cardiac enlargement without evidence of congestive failure. 2. No chest radiographic evidence of acute cardiopulmonary disease. SL: 82 04/14/2017 - - Read by: Huy Mixon MD Dictated Date/time: 04/14/17 03:54 Electronically Signed by: Huy Mixon MD 04/14/17 03:56 FINAL REPORT [facility] URINE AND STOOL UA Amorph Leticia Few /HPF None Seen /HPF 11/28/2015 [facility] URINE AND STOOL UA RBC 21-50 /HPF 0 - 2 11/28/2015 [facility] URINE AND STOOL UA Sq Epi Rare /LPF Few /LPF 11/28/2015 [facility] URINE AND STOOL UA Mucus Few /LPF None Seen /LPF 11/28/2015 [facility] URINE AND STOOL UA WBC 0-2 /HPF None Seen /HPF 11/28/2015 [facility] URINE AND STOOL UA Leuk Est Negative (11/28/15 1:23 PM) Negative 11/28/2015 [facility] URINE AND STOOL UA Urobilinogen 0.2 EU/dL 0.1 - 1.0 11/28/2015 [facility] URINE AND STOOL UA Nitrite Negative (11/28/15 1:23 PM) Negative 11/28/2015 [facility] URINE AND STOOL UA Bili Negative *NA* (11/28/15 1:23 PM) Negative 11/28/2015 [facility] URINE AND STOOL UA Blood Large *ABN* (11/28/15 1:23 PM) Negative 11/28/2015 [facility] URINE AND STOOL UA Color Yellow *NA* (11/28/15 1:23 PM) Yellow 11/28/2015 [facility] URINE AND STOOL UA Spec Grav 1.010 <=1.030 11/28/2015 [facility] URINE AND STOOL UA Turbidity Clear (11/28/15 1:23 PM) Clear 11/28/2015 [facility] URINE AND STOOL UA Ketones Negative *NA* (11/28/15 1:23 PM) Negative 11/28/2015 [facility] URINE AND STOOL UA Protein 100 mg/dL Negative mg/dL 11/28/2015 [facility] URINE AND STOOL UA pH 7.5 5.0 - 8.0 11/28/2015 [facility] URINE AND STOOL UA Glucose 100 mg/dL Negative mg/dL 11/28/2015 [facility] CARDIAC ENZYMES CK MB 0.8 ng/mL 0.5 - 3.6 11/28/2015 [facility] CARDIAC ENZYMES Troponin-I 0.02 ng/mL 0.00 - 0.40 11/28/2015 [facility] CARDIAC ENZYMES Total CK 67 unit/L 12 - 191 11/28/2015 [facility] CARDIAC ENZYMES CK MB Index 1.2 0.0 - 2.5 11/28/2015 [facility] CHEM PANEL Magnesium Lvl 1.9 mg/dL 1.8 - 2.4 11/28/2015 [facility] CHEM PANEL Phosphorus 1.6 mg/dL 2.5 - 4.5 11/28/2015 [facility] CHEM PANEL Bili Total 1.5 mg/dL 0.2 - 1.3 11/28/2015 [facility] CHEM PANEL Alk Phos 85 unit/L 39 - 136 11/28/2015 [facility] CHEM PANEL ALT 20 unit/L 0 - 65 11/28/2015 [facility] CHEM PANEL Globulin 3.6 g/dL 2.0 - 4.0 11/28/2015 [facility] CHEM PANEL A/G Ratio 1.1 0.7 - 1.6 11/28/2015 [facility] CHEM PANEL AST 14 unit/L 0 - 37 11/28/2015 [facility] CHEM PANEL Albumin Lvl 3.9 g/dL 3.5 - 5.0 11/28/2015 [facility] CHEM PANEL eGFR 24 mL/min/1.73m2 11/28/2015 Result Comment: The eGFR is calculated using the [...] from the National Kidney Disease Education Program (NKDEP) which additionally recommends that when the eGFR is used in patients with extremes of body mass index for purposes of drug dosing, the eGFR should be multiplied by the estimated BMI. [facility] CHEM PANEL Glucose Lvl 163 mg/dL 70 - 99 11/28/2015 [facility] CHEM PANEL Total Protein 7.5 g/dL 6.4 - 8.4 11/28/2015 [facility] CHEM PANEL B/C Ratio 11 6 - 25 11/28/2015 [facility] CHEM PANEL AGAP 15.8 meq/L 10.0 - 20.0 11/28/2015 [facility] CHEM PANEL Calcium Lvl 9.8 mg/dL 8.5 - 10.5 11/28/2015 [facility] CHEM PANEL CO2 23 meq/L 24 - 32 11/28/2015 [facility] CHEM PANEL Potassium Lvl 2.8 meq/L 3.5 - 5.1 11/28/2015 Result Comment: Critical Result(s) called to SAUNDRA BLAKELY at 11/28/2015 13:08 by MML. Read back OK. [facility] CHEM PANEL Chloride Lvl 98 meq/L 95 - 109 11/28/2015 [facility] CHEM PANEL Sodium Lvl 134 meq/L 135 - 145 11/28/2015 [facility] CHEM PANEL BUN 22 mg/dL 7 - 22 11/28/2015 [facility] CHEM PANEL Creatinine Lvl 2.07 mg/dL 0.50 - 1.40 11/28/2015 [facility] HEMATOLOGY MCH 30.1 pg 27.0 - 31.0 11/28/2015 [facility] HEMATOLOGY Hct 36.4 % 36.0 - 48.0 11/28/2015 [facility] HEMATOLOGY MCV 89.0 fL 80.0 - 98.0 11/28/2015 [facility] Hgb 12.3 g/dL 12.0 - 16.0 11/28/2015 [facility] [facility] MPV 10.9 fL 7.4 - 10.4 11/28/2015 [facility] Platelet 220 K/CMM 133 - 450 11/28/2015 [facility] RDW 15.5 % 11.5 - 14.5 11/28/2015 [facility] MCHC 33.8 g/dL 32.0 - 36.0 11/28/2015 [facility] HEMATOLOGY WBC 9.8 K/CMM 3.7 - 10.4 11/28/2015 [facility] RBC 4.09 M/CMM 4.20 - 5.40 11/28/2015 [facility] PTT 26.4 s 22.9 - 35.8 11/28/2015 [facility] INR 1.05 0.85 - 1.17 11/28/2015 [facility] PT 14.0 s 12.0 - 14.7 11/28/2015 [facility] HEMATOLOGY Basophils # 0.1 K/CMM 0.0 - 0.2 11/28/2015 [facility] HEMATOLOGY Lymphocytes # 3.1 K/CMM 1.0 - 5.5 11/28/2015 [facility] HEMATOLOGY Monocytes # 1.0 K/CMM 0.0 - 0.8 11/28/2015 [facility] HEMATOLOGY Basophils 0.8 % 0.0 - 1.0 11/28/2015 [facility] HEMATOLOGY Segs-Bands # 5.6 K/CMM 1.5 - 8.1 11/28/2015 [facility] HEMATOLOGY Eosinophils 0.4 % 0.0 - 4.0 11/28/2015 [facility] HEMATOLOGY Monocytes 10.0 % 2.0 - 12.0 11/28/2015 [facility] HEMATOLOGY Lymphocytes 31.3 % 20.0 - 40.0 11/28/2015 [facility] HEMATOLOGY Segs 57.5 % 45.0 - 75.0 11/28/2015 [facility] Chest 1view DX Chest 1view DX Clinical Indication: Chest pain; Comparison: 11/17/2015 FINDINGS: Single AP chest radiograph shows normal lung volumes without interstitial or airspace opacities, pleural effusions or pneumothorax. Right-sided central venous catheter tip remains superimposing the right atrium. Cardiac silhouette size remains enlarged. The trachea is midline. There are no clinically significant osseous abnormalities noted. IMPRESSION: No chest radiographic evidence of acute cardiopulmonary disease. SL: [id number] 11/28/2015 - - Read by: Kev Hancock MD Dictated Date/time: 11/28/15 12:39 Electronically Signed by: Kev Hancock MD 11/28/15 12:40 FINAL REPORT [facility] CHEM PANEL Bili Total 0.8 mg/dL 0.2 - 1.3 11/22/2015 [facility] CHEM PANEL Bili Direct 0.1 mg/dL 0.0 - 0.3 11/22/2015 [facility] CHEM PANEL Albumin Lvl 3.7 g/dL 3.5 - 5.0 11/22/2015 [facility] CHEM PANEL ALT 21 unit/L 0 - 65 11/22/2015 [facility] CHEM PANEL AST 17 unit/L 0 - 37 11/22/2015 [facility] CHEM PANEL Alk Phos 88 unit/L 39 - 136 11/22/2015 [facility] CHEM PANEL Total Protein 7.5 g/dL 6.4 - 8.4 11/22/2015 [facility] CHEM PANEL Bili Indirect 0.7 mg/dL 0.0 - 1.0 11/22/2015 [facility] CHEM PANEL Globulin 3.8 g/dL 2.0 - 4.0 11/22/2015 [facility] CHEM PANEL A/G Ratio 1.0 0.7 - 1.6 11/22/2015 [facility] CHEM PANEL Lipase Lvl 183 unit/L 73 - 393 11/22/2015 [facility] CHEM PANEL Amylase Lvl 52 unit/L 25 - 115 11/22/2015 [facility] IMMUNOLOGY C4 Complement 28 mg/dL 16 - 47 11/22/2015 [facility] IMMUNOLOGY C3 Complement 128 mg/dL 88 - 201 11/22/2015 [facility] ELECTROLYTES AGAP 17.6 meq/L 10.0 - 20.0 11/21/2015 [facility] ELECTROLYTES eGFR 35 mL/min/1.73m2 11/21/2015 Result Comment: The eGFR is calculated using the [...] from the National Kidney Disease Education Program (NKDEP) which additionally recommends that when the eGFR is used in patients with extremes of body mass index for purposes of drug dosing, the eGFR should be multiplied by the estimated BMI. [facility] ELECTROLYTES Creatinine Lvl 1.54 mg/dL 0.50 - 1.40 11/21/2015 [facility] ELECTROLYTES Sodium Lvl 137 meq/L 135 - 145 11/21/2015 [facility] ELECTROLYTES Potassium Lvl 3.6 meq/L 3.5 - 5.1 11/21/2015 [facility] ELECTROLYTES Glucose Lvl 191 mg/dL 70 - 99 11/21/2015 [facility] ELECTROLYTES BUN 17 mg/dL 7 - 22 11/21/2015 [facility] ELECTROLYTES CO2 20 meq/L 24 - 32 11/21/2015 [facility] ELECTROLYTES Calcium Lvl 9.7 mg/dL 8.5 - 10.5 11/21/2015 [facility] ELECTROLYTES Chloride Lvl 103 meq/L 95 - 109 11/21/2015 [facility] Hct 34.5 % 36.0 - 48.0 11/21/2015 [facility] WBC 7.1 K/CMM 3.7 - 10.4 11/21/2015 [facility] RBC 3.84 M/CMM 4.20 - 5.40 11/21/2015 [facility] Hgb 11.7 g/dL 12.0 - 16.0 11/21/2015 [facility] MCV 89.6 fL 80.0 - 98.0 11/21/2015 [facility] MCH 30.5 pg 27.0 - 31.0 11/21/2015 [facility] MCHC 34.1 g/dL 32.0 - 36.0 11/21/2015 [facility] RDW 15.2 % 11.5 - 14.5 11/21/2015 [facility] Platelet 153 K/CMM 133 - 450 11/21/2015 [facility] MPV 11.0 fL 7.4 - 10.4 11/21/2015 [facility] Monocytes # 0.4 K/CMM 0.0 - 0.8 11/21/2015 [facility] Segs 77.7 % 45.0 - 75.0 11/21/2015 [facility] HEMATOLOGY Lymphocytes 16.3 % 20.0 - 40.0 11/21/2015 [facility] HEMATOLOGY Basophils 0.4 % 0.0 - 1.0 11/21/2015 [facility] HEMATOLOGY Monocytes 5.6 % 2.0 - 12.0 11/21/2015 [facility] HEMATOLOGY Lymphocytes # 1.2 K/CMM 1.0 - 5.5 11/21/2015 [facility] HEMATOLOGY Segs-Bands # 5.5 K/CMM 1.5 - 8.1 11/21/2015 [facility] POC Activated Clotting Time 147 s 11/20/2015 [facility] POC Activated Clotting Time 165 s 11/20/2015 [facility] POC Activated Clotting Time 276 s 11/20/2015 [facility] ELECTROLYTES CO2 23 meq/L 24 - 32 11/20/2015 [facility] ELECTROLYTES Calcium Lvl 9.4 mg/dL 8.5 - 10.5 11/20/2015 [facility] ELECTROLYTES Potassium Lvl 3.1 meq/L 3.5 - 5.1 11/20/2015 [facility] ELECTROLYTES Chloride Lvl 100 meq/L 95 - 109 11/20/2015 [facility] ELECTROLYTES eGFR 35 mL/min/1.73m2 11/20/2015 Result Comment: The eGFR is calculated using the [...] from the National Kidney Disease Education Program (NKDEP) which additionally recommends that when the eGFR is used in patients with extremes of body mass index for purposes of drug dosing, the eGFR should be multiplied by the estimated BMI. [facility] ELECTROLYTES Glucose Lvl 159 mg/dL 70 - 99 11/20/2015 [facility] ELECTROLYTES BUN 11 mg/dL 7 - 22 11/20/2015 [facility] ELECTROLYTES Creatinine Lvl 1.53 mg/dL 0.50 - 1.40 11/20/2015 [facility] ELECTROLYTES Sodium Lvl 134 meq/L 135 - 145 11/20/2015 [facility] ELECTROLYTES AGAP 14.1 meq/L 10.0 - 20.0 11/20/2015 [facility] HEMATOLOGY PTT 68.1 s 22.9 - 35.8 11/20/2015 [facility] HEMATOLOGY Segs-Bands # 5.4 K/CMM 1.5 - 8.1 11/20/2015 [facility] HEMATOLOGY Monocytes 7.8 % 2.0 - 12.0 11/20/2015 [facility] HEMATOLOGY Lymphocytes 29.7 % 20.0 - 40.0 11/20/2015 [facility] HEMATOLOGY Eosinophils 1.5 % 0.0 - 4.0 11/20/2015 [facility] HEMATOLOGY Lymphocytes # 2.7 K/CMM 1.0 - 5.5 11/20/2015 [facility] HEMATOLOGY Monocytes # 0.7 K/CMM 0.0 - 0.8 11/20/2015 [facility] HEMATOLOGY Basophils # 0.1 K/CMM 0.0 - 0.2 11/20/2015 [facility] HEMATOLOGY Basophils 0.7 % 0.0 - 1.0 11/20/2015 [facility] HEMATOLOGY Eosinophils # 0.1 K/CMM 0.0 - 0.5 11/20/2015 [facility] HEMATOLOGY Segs 60.3 % 45.0 - 75.0 11/20/2015 [facility] MCV 88.4 fL 80.0 - 98.0 11/20/2015 [facility] MCHC 33.6 g/dL 32.0 - 36.0 11/20/2015 [facility] MCH 29.7 pg 27.0 - 31.0 11/20/2015 [facility] RDW 15.2 % 11.5 - 14.5 11/20/2015 [facility] Platelet 161 K/CMM 133 - 450 11/20/2015 [facility] MPV 10.6 fL 7.4 - 10.4 11/20/2015 [facility] HEMATOLOGY RBC 3.77 M/CMM 4.20 - 5.40 11/20/2015 [facility] HEMATOLOGY Hgb 11.2 g/dL 12.0 - 16.0 11/20/2015 [facility] HEMATOLOGY Hct 33.3 % 36.0 - 48.0 11/20/2015 [facility] HEMATOLOGY WBC 8.9 K/CMM 3.7 - 10.4 11/20/2015 [facility] CHEM PANEL eGFR 42 mL/min/1.73m2 11/19/2015 Result Comment: The eGFR is calculated using the [...] from the National Kidney Disease Education Program (NKDEP) which additionally recommends that when the eGFR is used in patients with extremes of body mass index for purposes of drug dosing, the eGFR should be multiplied by the estimated BMI. [facility] CHEM PANEL BUN 9 mg/dL 7 - 22 11/19/2015 [facility] CHEM PANEL Glucose Lvl 181 mg/dL 70 - 99 11/19/2015 [facility] CHEM PANEL Calcium Lvl 9.4 mg/dL 8.5 - 10.5 11/19/2015 [facility] CHEM PANEL Sodium Lvl 135 meq/L 135 - 145 11/19/2015 [facility] CHEM PANEL Chloride Lvl 97 meq/L 95 - 109 11/19/2015 [facility] CHEM PANEL Creatinine Lvl 1.33 mg/dL 0.50 - 1.40 11/19/2015 [facility] CHEM PANEL Potassium Lvl 3.0 meq/L 3.5 - 5.1 11/19/2015 Result Comment: Critical Result(s) called to Holli Camila at 11/19/2015 04:32 by [facility]. Read back [place]. [facility] CHEM PANEL CO2 30 meq/L 24 - 32 11/19/2015 [facility] CHEM PANEL AGAP 11.0 meq/L 10.0 - 20.0 11/19/2015 [facility] HEMATOLOGY Monocytes 8.7 % 2.0 - 12.0 11/19/2015 [facility] HEMATOLOGY Segs 56.2 % 45.0 - 75.0 11/19/2015 [facility] HEMATOLOGY Lymphocytes 33.3 % 20.0 - 40.0 11/19/2015 [facility] HEMATOLOGY Eosinophils # 0.1 K/CMM 0.0 - 0.5 11/19/2015 [facility] HEMATOLOGY Monocytes # 0.6 K/CMM 0.0 - 0.8 11/19/2015 [facility] HEMATOLOGY Segs-Bands # 4.0 K/CMM 1.5 - 8.1 11/19/2015 [facility] HEMATOLOGY Lymphocytes # 2.4 K/CMM 1.0 - 5.5 11/19/2015 [facility] HEMATOLOGY Eosinophils 1.2 % 0.0 - 4.0 11/19/2015 [facility] HEMATOLOGY Basophils 0.6 % 0.0 - 1.0 11/19/2015 [facility] PTT 61.1 s 22.9 - 35.8 11/19/2015 [facility] HEMATOLOGY WBC 7.2 K/CMM 3.7 - 10.4 11/19/2015 [facility] HEMATOLOGY RBC 3.48 M/CMM 4.20 - 5.40 11/19/2015 [facility] HEMATOLOGY Hgb 10.5 g/dL 12.0 - 16.0 11/19/2015 [facility] HEMATOLOGY MCV 87.9 fL 80.0 - 98.0 11/19/2015 [facility] HEMATOLOGY Hct 30.6 % 36.0 - 48.0 11/19/2015 [facility] MPV 10.7 fL 7.4 - 10.4 11/19/2015 [facility] HEMATOLOGY Platelet 152 K/CMM 133 - 450 11/19/2015 [facility] HEMATOLOGY RDW 15.4 % 11.5 - 14.5 11/19/2015 [facility] MCH 30.2 pg 27.0 - 31.0 11/19/2015 [facility] MCHC 34.4 g/dL 32.0 - 36.0 11/19/2015 [facility] PTT 56.1 s 22.9 - 35.8 11/19/[address] [facility] Hep B Core Ab Negative *NA* (11/18/15 5:57 PM) Negative 11/18/[address] [facility] Hep Bs Ab 5.6 mIU/mL <=7.4 mIU/mL 11/18/2015 [facility] IMMUNOLOGY Hep Bs Ag Negative *NA* (11/18/15 5:57 PM) Negative 11/18/2015 [facility] Carotid artery Doppler bilat US Carotid artery Doppler bilat US Please refer to the Heart Lab report located under Vascular in Care4. 11/18/2015 - - Electronically Signed by: Allyssa Calle RT(R)(CT) 11/20/15 14:43 FINAL REPORT [facility] CARDIAC ENZYMES Troponin-I 0.73 ng/mL 0.00 - 0.40 11/18/2015 Result Comment: Critical Result(s) called to Ashia MaldonadoRN at 11/17/2015 23:47 by SINDY. Read back [place]. [facility] CARDIAC ENZYMES Total CK 65 unit/L 12 - 191 11/18/2015 [facility] HEMATOLOGY Basophils # 0.1 K/CMM 0.0 - 0.2 11/18/2015 [facility] HEMATOLOGY Eosinophils # 0.2 K/CMM 0.0 - 0.5 11/18/2015 [facility] HEMATOLOGY Eosinophils 1.8 % 0.0 - 4.0 11/18/2015 [facility] HEMATOLOGY INR 0.99 0.85 - 1.17 11/18/2015 [facility] HEMATOLOGY PT 13.4 s 12.0 - 14.7 11/18/2015 [facility] CARDIAC ENZYMES Troponin-I 0.65 ng/mL 0.00 - 0.40 11/17/2015 Result Comment: Critical Result(s) called to mc girard at 11/17/2015 18:18_ by_bz. Read back [place]. [facility] CARDIAC ENZYMES Total CK 68 unit/L 12 - 191 11/17/2015 [facility] URINE AND STOOL UA Sq Epi Few /LPF Few /LPF 11/17/2015 [facility] URINE [facility] STOOL UA WBC 6-10 /HPF None Seen /HPF 11/17/2015 [facility] URINE [facility] STOOL UA RBC 11-20 /HPF 0 - 2 11/17/2015 [facility] URINE AND STOOL UA Bacteria Few /HPF None Seen /HPF 11/17/2015 [facility] URINE AND STOOL UA Blood Trace *ABN* (11/17/15 2:47 PM) Negative 11/17/2015 [facility] URINE AND STOOL UA Urobilinogen 0.2 EU/dL 0.1 - 1.0 11/17/2015 [facility] URINE AND STOOL UA Bili Small *ABN* (11/17/15 2:47 PM) Negative 11/17/2015 [facility] URINE AND STOOL UA Ketones Trace *ABN* (11/17/15 2:47 PM) Negative 11/17/2015 [facility] URINE AND STOOL UA Protein 30 mg/dL Negative mg/dL 11/17/2015 [facility] URINE AND STOOL UA Glucose Negative (11/17/15 2:47 PM) Negative 11/17/2015 [facility] URINE AND STOOL UA Leuk Est Negative (11/17/15 2:47 PM) Negative 11/17/2015 [facility] URINE AND STOOL UA Nitrite Negative (11/17/15 2:47 PM) Negative 11/17/2015 [facility] URINE AND STOOL UA Turbidity Clear (11/17/15 2:47 PM) Clear 11/17/2015 [facility] URINE AND STOOL UA Color Yellow *NA* (11/17/15 2:47 PM) Yellow 11/17/2015 [facility] URINE AND STOOL UA pH 6.5 5.0 - 8.0 11/17/2015 [facility] URINE AND STOOL UA Spec Grav 1.015 <=1.030 11/17/2015 [facility] CARDIAC ENZYMES CK MB Index 2.5 0.0 - 2.5 11/17/2015 [facility] CARDIAC ENZYMES Total CK 52 unit/L 12 - 191 11/17/2015 [facility] CARDIAC ENZYMES CK MB 1.3 ng/mL 0.5 - 3.6 11/17/2015 [facility] CARDIAC ENZYMES Troponin-I 0.02 ng/mL 0.00 - 0.40 11/17/2015 [facility] CHEM PANEL Phosphorus 3.1 mg/dL 2.5 - 4.5 11/17/2015 [facility] CHEM PANEL Lipase Lvl 71 unit/L 73 - 393 11/17/2015 [facility] CHEM PANEL Magnesium Lvl 1.8 mg/dL 1.8 - 2.4 11/17/2015 [facility] CHEM PANEL Lactic Acid Lvl 2.3 mMol/L 0.5 - 2.2 11/17/2015 [facility] HEMATOLOGY INR 1.12 0.85 - 1.17 11/17/2015 [facility] HEMATOLOGY PT 14.7 s 12.0 - 14.7 11/17/2015 [facility] HEMATOLOGY Basophils # 0.1 K/CMM 0.0 - 0.2 11/17/2015 [facility] CHEM PANEL ALT 14 unit/L 0 - 65 11/17/2015 [facility] CHEM PANEL AST 12 unit/L 0 - 37 11/17/2015 [facility] CHEM PANEL Alk Phos 86 unit/L 39 - 136 11/17/2015 [facility] CHEM PANEL Bili Total 0.6 mg/dL 0.2 - 1.3 11/17/2015 [facility] CHEM PANEL Total Protein 6.0 g/dL 6.4 - 8.4 11/17/2015 [facility] CHEM PANEL Globulin 3.2 g/dL 2.0 - 4.0 11/17/2015 [facility] CHEM PANEL A/G Ratio 0.9 0.7 - 1.6 11/17/2015 [facility] CHEM PANEL Albumin Lvl 2.8 g/dL 3.5 - 5.0 11/17/2015 [facility] CHEM PANEL B/C Ratio 6 6 - 25 11/17/2015 [facility] CHEM PANEL Procalcitonin Lvl 0.08 ng/mL 0.00 - 0.10 11/17/2015 [facility] Brain wo contrast CT Brain wo contrast CT Clinical Indication: Syncope with hypotension Comparison: None TECHNIQUE: CT images were obtained from the foramen magnum to the vertex without the use of intravenous contrast on a multidetector CT. Coronal and sagittal reconstructions were obtained. CT radiation dose DLP: 1137.34 mGy-cm FINDINGS: BRAIN PARENCHYMA: There are normal hurley-white interfaces, sulci and gyri. There are no focal mass lesions on this noncontrast head CT. There is no mass effect, midline shift or edema. There are no intra-axial or extra-axial fluid collections, intraventricular or intraparenchymal hemorrhage. The pineal, sellar, brainstem, cerebellum and skull base regions appear unremarkable. There are mild changes of chronic microvascular ischemia. VENTRICLES: The lateral ventricles, third and fourth ventricles appear unremarkable. The basilar cisterns are normal. ORBITS, MASTOIDS AND PARANASAL SINUSES: The visualized orbits and paranasal sinuses are unremarkable. The mastoid air cells are clear. SKULL: There are no osseous abnormalities. If there is further concern for intracranial pathology or acute stroke, MRI of the brain may be performed for complete assessment. IMPRESSION: Unremarkable noncontrast head CT with no mass, hemorrhage or subacute stroke. Mild changes of chronic microvascular ischemia. SL: [id number] 11/17/2015 - - Read by: Dayton Koenig MD Dictated Date/time: 11/17/15 12:04 Electronically Signed by: Dayton Koenig MD 11/17/15 12:05 FINAL REPORT [facility] Chest 1view DX Chest 1view DX Clinical Indication: Syncope Comparison: None FINDINGS: AP chest radiograph was obtained. MEDIASTINUM: The cardiac silhouette is normal in size. The aorta is unremarkable. There is a right IJ central venous catheter with the distal tip overlying the right atrium. LUNGS: Lung volumes are maintained. There are no focal infiltrates or effusions. There are no pneumothoraces noted. BONES: The visualized osseous structures are unremarkable. IMPRESSION: No acute infiltrates or effusions. SL: [id number] 11/17/2015 - - Read by: Dayton Koenig MD Dictated Date/time: 11/17/15 11:38 Electronically Signed by: Dayton Koenig MD 11/17/15 11:40 FINAL REPORT [facility] Vital Signs Vital Sign Value Date Comments Source Systolic (mm Hg) 178 05/09/2017 [facility] Diastolic (mm Hg) 78 05/09/2017 [facility] Respitory Rate 18 05/09/2017 [facility] Systolic (mm Hg) 205 05/09/2017 [facility] Diastolic (mm Hg) 92 05/09/2017 [facility] Respitory Rate 16 05/09/2017 [facility] Heart Rate 92 05/09/2017 [facility] Temperature Oral (F) 98.8 F 05/09/2017 [facility] BMI Calculated 32.99 05/09/2017 [facility] Height 157.48 cm 05/09/2017 [facility] Weight 81.818 05/09/2017 [facility] Temperature Oral (F) 97.9 F 04/14/2017 [facility] Heart Rate 83 04/14/2017 [facility] Respitory Rate 20 04/14/2017 [facility] Systolic (mm Hg) 158 04/14/2017 [facility] Diastolic (mm Hg) 68 04/14/2017 [facility] Temperature Oral (F) 98.7 F 04/14/2017 [facility] Heart Rate 79 04/14/2017 [facility] Respitory Rate 20 04/14/2017 [facility] Systolic (mm Hg) 144 04/14/2017 [facility] Diastolic (mm Hg) 79 04/14/2017 [facility] Systolic (mm Hg) 145 04/14/2017 [facility] Diastolic (mm Hg) 77 04/14/2017 [facility] Respitory Rate 16 04/14/2017 [facility] Heart Rate 80 04/14/2017 [facility] Height 157.48 cm 04/14/2017 [facility] BMI Calculated 33.54 04/14/2017 [facility] Weight 83.182 04/14/2017 [facility] Temperature Oral (F) 98.2 F 04/14/2017 [facility] Weight 82.818 04/14/2017 [facility] BMI Calculated 33.39 04/14/2017 [facility] Height 157.48 cm 04/14/2017 [facility] Respitory Rate 18 11/28/2015 [facility] Heart Rate 92 11/28/2015 [facility] Systolic (mm Hg) 162 11/28/2015 [facility] Diastolic (mm Hg) 60 11/28/2015 [facility] Heart Rate 88 11/28/2015 [facility] Respitory Rate 18 11/28/2015 [facility] Systolic (mm Hg) 179 11/28/2015 [facility] Diastolic (mm Hg) 88 11/28/2015 [facility] Respitory Rate 18 11/28/2015 [facility] Heart Rate 90 11/28/2015 [facility] Systolic (mm Hg) 195 11/28/2015 [facility] Diastolic (mm Hg) 86 11/28/2015 [facility] Height 157.48 cm 11/28/2015 [facility] BMI Calculated 27.23 11/28/2015 [facility] Temperature Oral (F) 97.6 F 11/28/2015 [facility] Weight 67.528 11/28/2015 [facility] Systolic (mm Hg) 117 11/24/2015 [facility] Diastolic (mm Hg) 68 11/24/2015 [facility] Heart Rate 65 11/24/2015 [facility] Respitory Rate 18 11/24/2015 [facility] Temperature Oral (F) 98.2 F 11/24/2015 [facility] Temperature Oral (F) 98.5 F 11/24/2015 [facility] Heart Rate 64 11/24/2015 [facility] Systolic (mm Hg) 107 11/24/2015 [facility] Diastolic (mm Hg) 67 11/24/2015 [facility] Respitory Rate 20 11/24/2015 [facility] Respitory Rate 18 11/24/2015 [facility] Heart Rate 63 11/24/2015 [facility] Temperature Oral (F) 97.5 F 11/24/2015 [facility] Systolic (mm Hg) 156 11/24/2015 [facility] Diastolic (mm Hg) 81 11/24/2015 [facility] Weight 69.864 11/20/2015 [facility] BMI Calculated 29.03 11/17/2015 [facility] Height 157.48 cm 11/17/2015 [facility] Weight 72 11/17/2015 [facility] Weight 77.273 11/17/2015 [facility] BMI Calculated 31.16 11/17/2015 [facility] Height 157.48 cm 11/17/2015 [facility] Encounters Location Location Details Encounter Type Encounter Number Reason For Visit Attending Provider ADM Date DC Date Status Source [facility] Inpatient [id number] Carlos Massey 11/17/2015 11/25/2015 [facility] [id number] Abhay Garcia 11/28/2015 11/28/2015 [facility] Observation [id number] Carlos Woodswolfgang 04/14/2017 04/14/2017 [facility] Emergency [id number] Prateek Mancini 05/09/2017 05/09/2017 [facility] Procedures Procedure Code Date Perfomer Comments Source Hysterectomy<sup>1</sup> [id number] total abdominal hysterectomy [facility] Insertion of tunneled dialysis catheter using fluoroscopic guidance<sup>2</sup> [id number] August 2015 [facility] Tonsillectomy [id number] [facility]
--- OUTSIDE RECORDS SUMMARY | 2018-12-22 11:55 | XMS REPORT ---
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 Allergies, Adverse Reactions, Alerts This patient has no known allergies or adverse reactions. Medications This patient has no known medications. Results Test Description Test Time Test Comments Text Results Atomic Results Result Comments TISSUE EXAM 2017-05-13 14:49:00 Surgical Pathology Report Case: [id number] Authorizing Provider: Vishnu East MD Collected: 05/09/2017 1414 Ord ering Location: [facility] PERIOPERATIVE Received: 05/12/2017 1135 SERVICES Pathologist: Susan Davis MD Specimen: Gallbladder, GALLBLADDER A.GALLBLADDER, CHOLECYSTECTOMY: - CHRONIC CHOLECYSTITIS, MILD- CHOLELITHIASIS Signing Pathologist Direct Phone Line: [phone] signed by Susan Davis MD on 05/13/2017 at 2:49 [id number] Gallbladder The specimen is received in formalin-filled container labeled with the patient's information and labeled "gallbladder". It consists of an intact gallbladder measuring 7.5 x 3 cm with a gallbladder wall thickness up to 0.2 cm. The gallbladder lumen is filled with green thick fluid and multiple green smooth stones measuring up to 0.2 cm. The mucosa is green and velvety with no abnormality.Section code: A1, margin en face; A2, gallbladder wall. CG/ewPerfomred POCT-GLUCOSE METER 2017-05-09 13:24:00 POC-GLUCOSE METER (BEAKER) (test hytw=7406) 143 mg/dL 70-110 TESTED AT [address] [id number]
--- OUTSIDE RECORDS SUMMARY | 2018-12-22 11:55 | XMS REPORT | Summary of Care ---
Author Author [facility] Organization [facility] Address Unknown Phone Unavailable Encounter TAMARA Lyons(BHARAT) [id number] Date(s): 11/28/15 - 11/28/15 [facility] [id number] [place] [address]- [phone] Discharge Diagnosis: Hypokalemia Discharge Diagnosis: Mild nausea and vomiting Discharge Disposition: Home Attending Physician: Abhay Garcia MD Vital Signs 1 2 3 Most recent to oldest [Reference Range]: 157.48 cm (11/28/15 11:27 AM) Height 97.6 DegF (11/28/15 11:27 AM) Temperature Oral [96.4-99.1 DegF] 162/60 mmHg *HI* (11/28/15 3:30 PM) 179/88 mmHg *HI* (11/28/15 3:00 PM) 195/86 mmHg *HI* (11/28/15 2:00 PM) Blood Pressure [90-140/60-90 mmHg] 18 BRMIN (11/28/15 3:30 PM) 18 BRMIN (11/28/15 3:00 PM) 18 BRMIN (11/28/15 2:00 PM) Respiratory Rate [14-20 BRMIN] 92 bpm (11/28/15 3:30 PM) 88 bpm (11/28/15 3:00 PM) 90 bpm (11/28/15 2:00 PM) Peripheral Pulse Rate [60-100 bpm] 67.528 kg (11/28/15 11:27 AM) Weight 27.23 m2 (11/28/15 11:27 AM) Body Mass Index Problem List Condition Effective Dates Status Health Status Informant Apnea, Resolved sleep(Confirmed) Arthritis(Confirmed) Resolved 1 Asthma(Confirmed) Resolved Bronchitis(Confirmed Resolved ) Diabetes(Confirmed) Active End stage kidney Active disease(Confirmed) H/O urinary tract Resolved infection(Confirmed) HTN Active (hypertension)(Confi rmed) 1knees Allergies, Adverse Reactions, Alerts Substance Reaction Severity Status azithromycin Active Medications Ativan 1 mg, 0.5 mL, Route: IVP, Drug form: INJ, ONCE, Dosing Weight 67.528, kg, Priori ty: STAT, Start date: 11/28/15 11:56:00, Stop date: 11/28/15 11:56:00 Notes: (Same as: Ativan) Start Date: 11/28/15 Stop Date: 11/28/15 Status: Completed Benadryl 25 mg, Route: IVP, ONCE, Dosing Weight 67.528, kg, Priority: STAT, Start date: 0 11/28/15 11:54:00, Stop date: 11/28/15 11:54:00 Start Date: 11/28/15 Stop Date: 11/28/15 Status: Discontinued fentaNYL 50 microgram, Route: IVP, ONCE, Dosing Weight 67.528, kg, Priority: STAT, Start date: 11/28/15 12:44:00, Stop date: 11/28/15 12:44:00 Start Date: 11/28/15 Stop Date: 11/28/15 Status: Completed morphine Sulfate 4 mg, 1 mL, Route: IV, Drug form: INJ, ONCE, Start date: 11/28/15 13:00:00, Stop date: 11/28/15 13:00:00 Notes: (Same as:MORPhine Sulfate) Start Date: 11/28/15 Stop Date: 11/28/15 Status: Completed morphine Sulfate 6 mg, 0.6 mL, Route: IVP, Drug form: INJ, ONCE, Dosing Weight 67.528, kg, Priori ty: STAT, Start date: 11/28/15 11:54:00, Stop date: 11/28/15 11:54:00 Notes: (Same as:MORPhine Sulfate) Start Date: 11/28/15 Stop Date: 11/28/15 Status: Deleted morphine Sulfate 2 mg, 1 mL, Route: IV, Drug form: INJ, ONCE, Start date: 11/28/15 13:00:00, Stop date: 11/28/15 13:00:00 Notes: (Same as:MORPhine Sulfate) Start Date: 11/28/15 Stop Date: 11/28/15 Status: Completed potassium chloride 10 mEq, 100 mL, Route: IVPB, Drug form: INJ, ONCE, Dosing Weight 67.528, kg, Sta rt date: 11/28/15 13:36:00, Stop date: 11/28/15 13:36:00 Notes: Infuse at a rate of 10 mEq/hr.(Same as: KCL) Start Date: 11/28/15 Stop Date: 11/28/15 Status: Completed potassium chloride 20 mEq, Route: PO, Drug form: ERTAB, ONCE, Dosing Weight 67.528, kg, Priority: S TAT, Start date: 11/28/15 13:21:00, Stop date: 11/28/15 13:21:00 Start Date: 11/28/15 Stop Date: 11/28/15 Status: Discontinued Reglan 10 mg, Route: IVP, Drug form: INJ, ONCE, Dosing Weight 67.528, kg, Priority: STA T, Start date: 11/28/15 11:54:00, Stop date: 11/28/15 11:54:00 Start Date: 11/28/15 Stop Date: 11/28/15 Status: Discontinued Saline Flush 0.9% 10 mL, Route: IVP, Drug Form: INJ, Dosing Weight 69.864, kg, PRN, PRN Line Flush , Start date: 11/28/15 11:29:00, Duration: 30 day, Stop date: 12/28/15 12:28:00 Notes: (Same as: BD Posiflush) Start Date: 11/28/15 Stop Date: 11/28/15 Status: Discontinued Sodium Chloride 0.9% (Bolus) IV 500 mL, 500 ml/hr, Infuse Over: 1 hr, Route: IV, 500, Drug form: INJ, ONCE, Prio rity: STAT, Dosing Weight 67.528 kg, Start date: 11/28/15 13:22:00, Duration: 1 doses or times, Stop date: 11/28/15 13:22:00 Start Date: 11/28/15 Stop Date: 11/28/15 Status: Completed Xanax 0.25 mg oral tablet 0.25 mg=1 tab, PO, BID, PRN Nausea & Vomiting, # 10 tab, 0 Refill(s) Start Date: 11/28/15 Stop Date: 12/02/15 Status: Ordered Results ELECTROLYTES Most recent to 1 oldest [Reference Range]: Sodium Lvl [135-145 134 mEq/L mEq/L] *LOW* (11/28/15 12:15 PM) Potassium Lvl 2.8 mEq/L 1 [3.5-5.1 mEq/L] *CRIT* (11/28/15 12:15 PM) Chloride Lvl [95-109 98 mEq/L mEq/L] (11/28/15 12:15 PM) CO2 [24-32 mEq/L] 23 mEq/L *LOW* (11/28/15 12:15 PM) AGAP [10.0-20.0 15.8 mEq/L mEq/L] (11/28/15 12:15 PM) 1Result Comment: Critical Result(s) called to SAUNDRA BLAKELY at 11/28/2015 13:08 by MML. Read back OK. CHEM PANEL Most recent to 1 oldest [Reference Range]: Creatinine Lvl 2.07 mg/dL [0.50-1.40 mg/dL] *HI* (11/28/15 12:15 PM) eGFR 24 mL/min/1.73m2 1 *NA* (11/28/15 12:15 PM) BUN [7-22 mg/dL] 22 mg/dL (11/28/15 12:15 PM) B/C Ratio [6-25] 11 (11/28/15 12:15 PM) Glucose Lvl [70-99 163 mg/dL mg/dL] *HI* (11/28/15 12:15 PM) Total Protein 7.5 g/dL [6.4-8.4 g/dL] (11/28/15 12:15 PM) Albumin Lvl [3.5-5.0 3.9 g/dL g/dL] (11/28/15 12:15 PM) Globulin [2.0-4.0 3.6 g/dL g/dL] (11/28/15 12:15 PM) A/G Ratio [0.7-1.6] 1.1 (11/28/15 12:15 PM) Calcium Lvl 9.8 mg/dL [8.5-10.5 mg/dL] (11/28/15 12:15 PM) Phosphorus [2.5-4.5 1.6 mg/dL mg/dL] *LOW* (11/28/15 12:15 PM) Magnesium Lvl 1.9 mg/dL [1.8-2.4 mg/dL] (11/28/15 12:15 PM) ALT [0-65 unit/L] 20 unit/L (11/28/15 12:15 PM) AST [0-37 unit/L] 14 unit/L (11/28/15 12:15 PM) Alk Phos [39-136 85 unit/L unit/L] (11/28/15 12:15 PM) Bili Total [0.2-1.3 1.5 mg/dL mg/dL] *HI* (11/28/15 12:15 PM) 1Result Comment: The eGFR is calculated [...] 1 oldest [Reference Range]: Total CK [12-191 67 unit/L unit/L] (11/28/15 12:15 PM) CK MB [0.5-3.6 0.8 ng/mL ng/mL] (11/28/15 12:15 PM) CK MB Index 1.2 [0.0-2.5] (11/28/15 12:15 PM) Troponin-I 0.02 ng/mL [0.00-0.40 ng/mL] (11/28/15 12:15 PM) URINE AND STOOL Most recent to 1 oldest [Reference Range]: UA Turbidity [Clear] Clear (11/28/15 1:23 PM) UA Color [Yellow] Yellow *NA* (11/28/15 1:23 PM) UA pH [5.0-8.0] 7.5 (11/28/15 1:23 PM) UA Spec Grav 1.010 [<=1.030] (11/28/15 1:23 PM) UA Glucose [Negative 100 mg/dL mg/dL] *ABN* (11/28/15 1:23 PM) UA Blood [Negative] Large *ABN* (11/28/15 1:23 PM) UA Ketones Negative [Negative] *NA* (11/28/15 1:23 PM) UA Protein [Negative 100 mg/dL mg/dL] *ABN* (11/28/15 1:23 PM) UA Urobilinogen 0.2 EU/dL [0.1-1.0 EU/dL] (11/28/15 1:23 PM) UA Bili [Negative] Negative *NA* (11/28/15 1:23 PM) UA Leuk Est Negative [Negative] (11/28/15 1:23 PM) UA Nitrite Negative [Negative] (11/28/15 1:23 PM) UA WBC [None Seen 0-2 /HPF /HPF] (11/28/15 1:23 PM) UA RBC [0-2 /HPF] 21-50 /HPF *ABN* (11/28/15 1:23 PM) UA Sq Epi [Few /LPF] Rare /LPF (11/28/15 1:23 PM) UA Amorph Leticia [None Few /HPF Seen /HPF] *ABN* (11/28/15 1:23 PM) UA Mucus [None Seen Few /LPF /LPF] (11/28/15 1:23 PM) HEMATOLOGY Most recent to 1 oldest [Reference Range]: WBC [3.7-10.4 K/CMM] 9.8 K/CMM (11/28/15 12:15 PM) RBC [4.20-5.40 4.09 M/CMM M/CMM] *LOW* (11/28/15 12:15 PM) Hgb [12.0-16.0 g/dL] 12.3 g/dL (11/28/15 12:15 PM) Hct [36.0-48.0 %] 36.4 % (11/28/15 12:15 PM) MCV [80.0-98.0 fL] 89.0 fL (11/28/15 12:15 PM) MCH [27.0-31.0 pg] 30.1 pg (11/28/15 12:15 PM) MCHC [32.0-36.0 33.8 g/dL g/dL] (11/28/15 12:15 PM) RDW [11.5-14.5 %] 15.5 % *HI* (11/28/15 12:15 PM) Platelet [133-450 220 K/CMM K/CMM] (11/28/15 12:15 PM) MPV [7.4-10.4 fL] 10.9 fL *HI* (11/28/15 12:15 PM) Segs [45.0-75.0 %] 57.5 % (11/28/15 12:15 PM) Lymphocytes 31.3 % [20.0-40.0 %] (11/28/15 12:15 PM) Monocytes [2.0-12.0 10.0 % %] (11/28/15 12:15 PM) Eosinophils [0.0-4.0 0.4 % %] (11/28/15 12:15 PM) Basophils [0.0-1.0 0.8 % %] (11/28/15 12:15 PM) Segs-Bands # 5.6 K/CMM [1.5-8.1 K/CMM] (11/28/15 12:15 PM) Lymphocytes # 3.1 K/CMM [1.0-5.5 K/CMM] (11/28/15 12:15 PM) Monocytes # [0.0-0.8 1.0 K/CMM K/CMM] *HI* (11/28/15 12:15 PM) Basophils # [0.0-0.2 0.1 K/CMM K/CMM] (11/28/15 12:15 PM) PT [12.0-14.7 14.0 seconds seconds] (11/28/15 12:15 PM) INR [0.85-1.17] 1.05 (11/28/15 12:15 PM) PTT [22.9-35.8 26.4 seconds seconds] (11/28/15 12:15 PM) Immunizations No data available for this [...]
--- OUTSIDE RECORDS SUMMARY | 2018-12-22 11:55 | XMS REPORT | Summary of Care ---
Author Author [facility] Organization [facility] Address Unknown Phone Unavailable Encounter TAMARA Lyons(BHARAT) [id number] Date(s): 04/14/17 - 04/14/17 [facility] [id number] [place] [address]- [phone] Discharge Disposition: Home or Self Care Attending Physician: Carlos Masesy MD Admitting Physician: Carlos Massey MD Vital Signs 1 2 3 Most recent to oldest [Reference Range]: 157.48 cm (04/14/17 9:54 AM) 157.48 cm (04/14/17 2:45 AM) Height 97.9 DegF (04/14/17 3:05 PM) 98.7 DegF (04/14/17 10:44 AM) 98.2 DegF (04/14/17 8:35 AM) Temperature Oral [96.4-99.1 DegF] 158/68 mmHg *HI* (04/14/17 3:05 PM) 144/79 mmHg *HI* (04/14/17 10:44 AM) 145/77 mmHg *HI* (04/14/17 10:15 AM) Blood Pressure [90-140/60-90 mmHg] 20 BRMIN (04/14/17 3:05 PM) 20 BRMIN (04/14/17 10:44 AM) 16 BRMIN (04/14/17 10:15 AM) Respiratory Rate [14-20 BRMIN] 83 bpm (04/14/17 3:05 PM) 79 bpm (04/14/17 10:44 AM) 80 bpm (04/14/17 10:15 AM) Peripheral Pulse Rate [60-100 bpm] 83.182 kg (04/14/17 9:54 AM) 82.818 kg (04/14/17 2:45 AM) Weight 33.54 m2 (04/14/17 9:54 AM) 33.39 m2 (04/14/17 2:45 AM) Body Mass Index Problem List Condition Effective Dates Status Health Status Informant Anxiety(Confirmed) Resolved Apnea, Resolved sleep(Confirmed) Arthritis(Confirmed) Resolved 1 Asthma(Confirmed) Resolved Bronchitis(Confirmed Resolved ) Diabetes(Confirmed) Active End stage kidney Active disease(Confirmed) H/O urinary tract Resolved infection(Confirmed) HTN Active (hypertension)(Confi rmed) H/O Resolved neuropathy(Confirmed ) 1knees Allergies, Adverse Reactions, Alerts Substance Reaction Severity Status Ambien Active azithromycin Active morphine Active Medications aspirin 325 mg, 1 tab, Route: PO, Drug form: TAB, ONCE, Dosing Weight 82.818, kg, Priori ty: STAT, Start date: 04/14/17 6:12:00 CDT, Stop date: 04/14/17 6:12:00 CDT Notes: Take with food. Start Date: 04/14/17 Stop Date: 04/14/17 Status: Completed aspirin 81 mg tablet, enteric coated 81 mg, 1 tab, Route: PO, Drug form: ECTAB, Daily, Dosing Weight 83.182, kg, Star t date: 04/15/17 9:00:00 CDT, Duration: 30 day, Stop date: 05/14/17 9:00:00 CDT Notes: Do not crush or chew.(Same As: Ecotrin) Start Date: 04/15/17 Stop Date: 04/14/17 Status: Canceled atorvastatin 40 mg, 1 tab, Route: PO, Drug form: TAB, Bedtime, Dosing Weight 83.182, kg, Star t date: 04/14/17 21:00:00 CDT, Duration: 30 day, Stop date: 05/13/17 21:00:00 CD T Notes: (Same as: Lipitor) Start Date: 04/14/17 Stop Date: 04/14/17 Status: Canceled cefTRIAXone + sodium chloride 0.9% INJ 100 mL 1 gm, Route: IVPB, Drug form: PDR/INJ, ONCE, Dosing Weight 82.818, kg, Priority: STAT, Start date: 04/14/17 5:57:00 CDT, Duration: 1 doses or times, Stop date: 04/14/17 5:57:00 CDT, ABX Indication: Urinary Tract Infection Notes: (Same As: Rocephin).Use with 100 mL NS and infuse over 30 min MEDICA TION WASTE Product Size: 1000 mgProduct Wasted: ___ mg Start Date: 04/14/17 Stop Date: 04/14/17 Status: Completed clonazePAM 0.5 mg, 1 tab, Route: PO, Drug form: TAB, BID, Dosing Weight 83.182, kg, PRN Anx iety, Start date: 04/14/17 14:03:00 CDT, Duration: 30 day, Stop date: 05/14/17 1 4:02:00 CDT Notes: (Same As: KlonoPIN) Start Date: 04/14/17 Stop Date: 04/14/17 Status: Discontinued clonazePAM 0.5 mg oral tablet 0.5 mg=1 tab, PO, BID, PRN Anxiety, 0 Refill(s) Start Date: 04/14/17 Status: Ordered escitalopram 20 mg, 2 tab, Route: PO, Drug form: TAB, Daily, Dosing Weight 83.182, kg, Start date: 04/15/17 9:00:00 CDT, Duration: 30 day, Stop date: 05/14/17 9:00:00 CDT Notes: (Same as: Lexapro) Start Date: 04/15/17 Stop Date: 04/14/17 Status: Canceled escitalopram 20 mg oral tablet 20 mg=1 tab, PO, Daily, # 30 tab, 0 Refill(s) Start Date: 04/14/17 Status: Ordered furosemide 20 mg oral tablet 20 mg, 1 tab, Route: PO, Drug form: TAB, Daily, Dosing Weight 83.182, kg, PRN Ed laith, Start date: 04/14/17 14:03:00 CDT, Duration: 30 day, Stop date: 05/14/17 14 :02:00 CDT Notes: (Same as: Lasix) May cause GI upset. Give with food or milk. Start Date: 04/14/17 Stop Date: 04/14/17 Status: Discontinued furosemide 20 mg oral tablet 20 mg=1 tab, PO, Daily, PRN Edema, 0 Refill(s) Start Date: 04/14/17 Status: Ordered gabapentin 300 mg, 1 cap, Route: PO, Drug form: CAP, TID, Dosing Weight 83.182, kg, Start d ate: 04/14/17 17:00:00 CDT, Duration: 30 day, Stop date: 05/14/17 13:00:00 CDT Notes: (Same as: Neurontin) Start Date: 04/14/17 Stop Date: 04/14/17 Status: Canceled glimepiride 2 mg, Route: PO, BID, Dosing Weight 83.182, kg, Start date: 04/14/17 17:00:00 CD T, Duration: 30 day, Stop date: 05/14/17 9:00:00 CDT Start Date: 04/14/17 Stop Date: 04/14/17 Status: Canceled hydrALAZINE 25 mg oral tablet 25 mg=1 tab, PO, TID, 0 Refill(s) Start Date: 04/14/17 Status: Ordered hydrALAZINE 25 mg oral tablet 25 mg, 1 tab, Route: PO, Drug form: TAB, TID, Dosing Weight 83.182, kg, Start da te: 04/14/17 17:00:00 CDT, Duration: 30 day, Stop date: 05/14/17 13:00:00 CDT Notes: (Same as: Apresoline) May interfere w/enteral feedings Take With Food. Start Date: 04/14/17 Stop Date: 04/14/17 Status: Canceled losartan 25 mg, 1 tab, Route: PO, Drug form: TAB, Daily, Dosing Weight 83.182, kg, Start date: 04/15/17 9:00:00 CDT, Duration: 30 day, Stop date: 05/14/17 9:00:00 CDT Notes: (Same as: Cozaar) Start Date: 04/15/17 Stop Date: 04/14/17 Status: Canceled losartan 25 mg oral tablet 25 mg=1 tab, PO, Daily, # 30 tab, 0 Refill(s) Start Date: 04/14/17 Status: Ordered metoprolol tartrate 100 mg, 1 tab, Route: PO, Drug form: TAB, Q12H, Dosing Weight 83.182, kg, Start date: 04/14/17 21:00:00 CDT, Duration: 30 day, Stop date: 05/14/17 9:00:00 CDT Notes: (Same as: Lopressor) Start Date: 04/14/17 Stop Date: 04/14/17 Status: Canceled metoprolol tartrate 100 mg oral tablet 100 mg=1 tab, PO, BID, # 60 tab, 0 Refill(s) Start Date: 04/14/17 Status: Ordered morphine Sulfate 4 mg, 1 mL, Route: IVP, Drug form: INJ, ONCE, Dosing Weight 82.818, kg, Priority : STAT, Start date: 04/14/17 5:11:00 CDT, Stop date: 04/14/17 5:11:00 CDT Notes: (Same as:MORPhine Sulfate) Start Date: 04/14/17 Stop Date: 04/14/17 Status: Completed morphine Sulfate 4 mg, 1 mL, Route: IVP, Drug form: INJ, ONCE, Dosing Weight 82.818, kg, Priority : STAT, Start date: 04/14/17 3:05:00 CDT, Stop date: 04/14/17 3:05:00 CDT Notes: (Same as:MORPhine Sulfate) Start Date: 04/14/17 Stop Date: 04/14/17 Status: Completed NIFEdipine 90 mg oral tablet, extended release 90 mg, 1 tab, Route: PO, Drug form: ERTAB, Daily, Dosing Weight 83.182, kg, Star t date: 04/15/17 9:00:00 CDT, Duration: 30 day, Stop date: 05/14/17 9:00:00 CDT Notes: (Same as: Adalat CC,Procardia XL)"Do Not Crush" "Avoid grapefruit and gr apefruit juice" Start Date: 04/15/17 Stop Date: 04/14/17 Status: Canceled NIFEdipine 90 mg oral tablet, extended release 90 mg=1 tab, PO, Daily, 0 Refill(s) Start Date: 04/14/17 Status: Ordered nitroglycerin SL Tab 0.4 mg, 1 tab, Route: SL, Drug form: TAB, Q5Min, Dosing Weight 82.818, kg, PRN C hest Pain, Start date: 04/14/17 7:33:00 CDT, Duration: 3 doses or times, Stop da te: Limited # of times Notes: (Same as:Nitroquick, Nitrostat)"Do Not Crush" Sublingual tablet Start Date: 04/14/17 Stop Date: 04/14/17 Status: Discontinued Hubertus 10/325 oral tablet 1 tab, Route: PO, Drug Form: TAB, Dosing Weight 82.818, kg, ONCE, STAT, Start da te: 04/14/17 6:04:00 CDT, Stop date: 04/14/17 6:04:00 CDT Notes: Do not exceed 4gm/day of acetaminophen. (Same as: Hubertus 325/10) Start Date: 04/14/17 Stop Date: 04/14/17 Status: Completed ondansetron 4 mg, 2 mL, Route: IVP, Drug form: INJ, ONCE, Dosing Weight 82.818, kg, Priority : STAT, Start date: 04/14/17 6:04:00 CDT, Stop date: 04/14/17 6:04:00 CDT Notes: (Same as: Tova) MEDICATION WASTE Product Size: 4 mgProduct Was alethea: ___ mg Start Date: 04/14/17 Stop Date: 04/14/17 Status: Completed ondansetron 4 mg, 1 tab, Route: PO, Drug form: TAB, Q8H, Dosing Weight 82.818, kg, PRN Nause a & Vomiting, Start date: 04/14/17 7:33:00 CDT, Duration: 30 day, Stop date: 05/14/17 7:32:00 CDT Notes: (Same as: Tova) Start Date: 04/14/17 Stop Date: 04/14/17 Status: Discontinued ondansetron 4 mg, 2 mL, Route: IVP, Drug form: INJ, ONCE, Dosing Weight 82.818, kg, Priority : STAT, Start date: 04/14/17 3:05:00 CDT, Stop date: 04/14/17 3:05:00 CDT Notes: (Same as: Tova) MEDICATION WASTE Product Size: 4 mgProduct Was alethea: ___ mg Start Date: 04/14/17 Stop Date: 04/14/17 Status: Completed pantoprazole 40 mg, 1 tab, Route: PO, Drug form: ECTAB, Daily, Dosing Weight 83.182, kg, Star t date: 04/15/17 9:00:00 CDT, Duration: 30 day, Stop date: 05/14/17 9:00:00 CDT Notes: Tablet should not be chewed or crushed.(Same as: Protonix) Start Date: 04/15/17 Stop Date: 04/14/17 Status: Canceled potassium chloride 40 mEq, 2 tab, Route: PO, Drug form: ERTAB, ONCE, Dosing Weight 82.818, kg, Prio rity: STAT, Start date: 04/14/17 4:26:00 CDT, Stop date: 04/14/17 4:26:00 CDT Notes: (Same as: K-Dur 20)"Do Not Crush" With food and full glass of water Start Date: 04/14/17 Stop Date: 04/14/17 Status: Completed potassium chloride 40 mEq, 2 tab, Route: PO, Drug form: ERTAB, ONCE, Dosing Weight 83.182, kg, Star t date: 04/14/17 10:58:00 CDT, Stop date: 04/14/17 10:58:00 CDT Notes: (Same as: K-Dur 20)"Do Not Crush" With food and full glass of water Start Date: 04/14/17 Stop Date: 04/14/17 Status: Completed rivastigmine 4.6 mg/24 hr transdermal film, extended release 4.6 mg, 1 patch, Route: TOP, Drug form: ERFILM, Daily, Dosing Weight 83.182, kg, Start date: 04/15/17 9:00:00 CDT, Duration: 30 day, Stop date: 05/14/17 9:00:00 CDT Notes: Same as Lakshmi"Remove old patch before application of new patch" Start Date: 04/15/17 Stop Date: 04/14/17 Status: Canceled rivastigmine 4.6 mg/24 hr transdermal film, extended release =1 patch, TOP, Daily, apply to skin, # 30 patch, 1 Refill(s) Start Date: 04/14/17 Stop Date: 05/14/17 Status: Ordered Saline Flush 0.9% 10 ml, Route: IVP, Drug Form: INJ, Dosing Weight 82.818, kg, Q12H, Start date: 0 04/14/17 9:00:00 CDT, Duration: 30 day, Stop date: 05/13/17 21:00:00 CDT Notes: (Same as: BD Posiflush) Start Date: 04/14/17 Stop Date: 04/14/17 Status: Discontinued Saline Flush 0.9% 10 ml, Route: IVP, Drug Form: INJ, Dosing Weight 82.818, kg, PRN, PRN Line Flush , Start date: 04/14/17 7:33:00 CDT, Duration: 30 day, Stop date: 05/14/17 7:32:0 0 CDT Notes: (Same as: BD Posiflush) Start Date: 04/14/17 Stop Date: 04/14/17 Status: Discontinued Saline Flush 0.9% 10 mL, Route: IVP, Drug Form: INJ, Dosing Weight 82.818, kg, PRN, PRN Line Flush , Start date: 04/14/17 3:05:00 CDT, Duration: 30 day, Stop date: 05/14/17 3:04:0 0 CDT Notes: (Same as: BD Posiflush) Start Date: 04/14/17 Stop Date: 04/14/17 Status: Discontinued tizanidine 4 mg, 1 tab, Route: PO, Drug form: TAB, Q8H, Dosing Weight 83.182, kg, PRN as ne eded for muscle spasm, Start date: 04/14/17 14:03:00 CDT, Duration: 30 day, Stop date: 05/14/17 14:02:00 CDT Notes: (Same As: Zanaflex) Start Date: 04/14/17 Stop Date: 04/14/17 Status: Discontinued tramadol 50 mg oral tablet 50 mg=1 tab, PO, Q6H, PRN Pain, # 40 tab, 0 Refill(s) Start Date: 04/14/17 Stop Date: 04/14/17 Status: Discontinued Tylenol with Codeine #3 oral tablet 1 tab, PO, Q6H, PRN Pain, X 7 day, # 28 tab, 0 Refill(s) Start Date: 04/14/17 Stop Date: 04/21/17 Status: Ordered Results ELECTROLYTES 1 2 3 Most recent to oldest [Reference Range]: 135 mEq/L (04/14/17 3:42 AM) Sodium Lvl [135-145 mEq/L] 2.7 mEq/L 1 *CRIT* (04/14/17 3:42 AM) Potassium Lvl [3.5-5.1 mEq/L] 100 mEq/L (04/14/17 3:42 AM) Chloride Lvl [95-109 mEq/L] 20 mEq/L *LOW* (04/14/17 3:42 AM) CO2 [24-32 mEq/L] 17.7 mEq/L (04/14/17 3:42 AM) AGAP [10.0-20.0 mEq/L] 1Result Comment: Critical Result(s) called to NIKIA ASHBY at 04/14/2017 04:17 by Manuela. Read back OK. CHEM PANEL 1 2 3 Most recent to oldest [Reference Range]: 1.62 mg/dL *HI* (04/14/17 3:42 AM) Creatinine Lvl [0.50-1.40 mg/dL] 33 mL/min/1.73m2 1 *NA* (04/14/17 3:42 AM) eGFR 21 mg/dL (04/14/17 3:42 AM) BUN [7-22 mg/dL] 13 (04/14/17 3:42 AM) B/C Ratio [6-25] 242 mg/dL *HI* (04/14/17 3:42 AM) Glucose Lvl [70-99 mg/dL] 8.6 g/dL *HI* (04/14/17 3:42 AM) Total Protein [6.4-8.4 g/dL] 4.2 g/dL (04/14/17 3:42 AM) Albumin Lvl [3.5-5.0 g/dL] 4.4 g/dL *HI* (04/14/17 3:42 AM) Globulin [2.7-4.2 g/dL] 1.0 (04/14/17 3:42 AM) A/G Ratio [0.7-1.6] 9.5 mg/dL (04/14/17 3:42 AM) Calcium Lvl [8.5-10.5 mg/dL] 17 unit/L (04/14/17 3:42 AM) ALT [0-65 unit/L] 13 unit/L (04/14/17 3:42 AM) AST [0-37 unit/L] 167 unit/L *HI* (04/14/17 3:42 AM) Alk Phos [39-136 unit/L] 0.9 mg/dL (04/14/17 3:42 AM) Bili Total [0.2-1.3 mg/dL] 59 unit/L *LOW* (04/14/17 3:42 AM) Lipase Lvl [73-393 unit/L] 1Result Comment: The eGFR is calculated using [...] 3 Most recent to oldest [Reference Range]: 71 unit/L (04/14/17 12:11 PM) 49 unit/L (04/14/17 8:42 AM) 59 unit/L (04/14/17 3:42 AM) Total CK [12-191 unit/L] <1.0 ng/mL (04/14/17 3:42 AM) CK MB [0.5-3.6 ng/mL] <1.7 (04/14/17 3:42 AM) CK MB Index [0.0-2.5] <0.02 ng/mL (04/14/17 12:11 PM) <0.02 ng/mL (04/14/17 8:42 AM) <0.02 ng/mL (04/14/17 3:42 AM) Troponin-I [0.00-0.40 ng/mL] URINE AND STOOL 1 2 3 Most recent to oldest [Reference Range]: Marked *ABN* (04/14/17 4:00 AM) UA Turbidity [Clear] Lisa *ABN* (04/14/17 4:00 AM) UA Color [Yellow] 5.0 (04/14/17 4:00 AM) UA pH [5.0-8.0] 1.025 (04/14/17 4:00 AM) UA Spec Grav [<=1.030] 50 mg/dL *ABN* (04/14/17 4:00 AM) UA Glucose [Negative mg/dL] Moderate *ABN* (04/14/17 4:00 AM) UA Blood [Negative] Negative mg/dL *NA* (04/14/17 4:00 AM) UA Ketones [Negative mg/dL] 30 mg/dL *ABN* (04/14/17 4:00 AM) UA Protein [Negative mg/dL] <=1.0 mg/dL *NA* (04/14/17 4:00 AM) UA Urobilinogen [0.1-1.0 mg/dL] Small *ABN* (04/14/17 4:00 AM) UA Bili [Negative] Large *ABN* (04/14/17 4:00 AM) UA Leuk Est [Negative] Negative (04/14/17 4:00 AM) UA Nitrite [Negative] 39 /HPF *HI* (04/14/17 4:00 AM) UA WBC [0-5 /HPF] 13 /HPF *HI* (04/14/17 4:00 AM) UA RBC [0-2 /HPF] Occasional /HPF *NA* (04/14/17 4:00 AM) UA Bacteria [None Seen /HPF] Few /LPF *NA* (04/14/17 4:00 AM) UA Sq Epi [Few /LPF] 12 /LPF *HI* (04/14/17 4:00 AM) UA Hyal Cast [0-2 /LPF] Few /LPF *NA* (04/14/17 4:00 AM) UA Mucus [None Seen /LPF] HEMATOLOGY 1 2 3 Most recent to oldest [Reference Range]: 12.3 K/CMM *HI* (04/14/17 3:42 AM) WBC [3.7-10.4 K/CMM] 5.12 M/CMM (04/14/17 3:42 AM) RBC [4.20-5.40 M/CMM] 15.8 g/dL (04/14/17 3:42 AM) Hgb [12.0-16.0 g/dL] 46.1 % (04/14/17 3:42 AM) Hct [36.0-48.0 %] 90.0 fL (04/14/17 3:42 AM) MCV [80.0-98.0 fL] 30.8 pg (04/14/17 3:42 AM) MCH [27.0-31.0 pg] 34.2 g/dL (04/14/17 3:42 AM) MCHC [32.0-36.0 g/dL] 13.5 % (04/14/17 3:42 AM) RDW [11.5-14.5 %] 231 K/CMM (04/14/17 3:42 AM) Platelet [133-450 K/CMM] 11.2 fL *HI* (04/14/17 3:42 AM) MPV [7.4-10.4 fL] 73.4 % (04/14/17 3:42 AM) Segs [45.0-75.0 %] 18.6 % *LOW* (04/14/17 3:42 AM) Lymphocytes [20.0-40.0 %] 6.9 % (04/14/17 3:42 AM) Monocytes [2.0-12.0 %] 0.4 % (04/14/17 3:42 AM) Eosinophils [0.0-4.0 %] 0.7 % (04/14/17 3:42 AM) Basophils [0.0-1.0 %] 9.1 K/CMM *HI* (04/14/17 3:42 AM) Segs-Bands # [1.5-8.1 K/CMM] 2.3 K/CMM (04/14/17 3:42 AM) Lymphocytes # [1.0-5.5 K/CMM] 0.9 K/CMM *HI* (04/14/17 3:42 AM) Monocytes # [0.0-0.8 K/CMM] 0.1 K/CMM (04/14/17 3:42 AM) Basophils # [0.0-0.2 K/CMM] Immunizations No data available for this section Procedures Procedure Date Related Diagnosis Body Site Hysterectomy1 Insertion of tunneled dialysis catheter using fluoroscopic guidance2 Tonsillectomy 1total abdominal hysterectomy 2December 2014 Social History Social History Type Response Alcohol Never Smoking Status Never smoker; Exposure to Tobacco Smoke None; Cigarette Smoking Last 365 Days No; Reg Smoking Cessation Counseling Yes Assessment and Plan Extracted from: Title: General Admission H&P * Author: Tez Zelaya DO Date: 04/14/17 Impression and Plan Diagnosis Chest pain Hypokalemia Cholelithiasis CAD HTN HLD -chest pain is atypical. likely 2/2 back/shoulder pain. cardio consulted. 3 sets cardiac enzymes negative -potassium replete -gallstones seen on u/s w/o signs of acute cholecystitis -pt cleared for d/c by cardio. f/u w/ pcp as outpt. script for tylenol#3 given.
[2018-12-22 17:39] VITALS: BP 144/75
== END 2018-12-22 17:43 | disposition home or self-care (01) ==
LOC: ER 11:51
DX: I95.2 Hypotension due to drugs (principal); F03.90 Unspecified dementia, unspecified severity, without behavioral disturbance, psychotic disturbance, mood disturbance, and anxiety; I10 Essential (primary) hypertension; E11.9 Type 2 diabetes mellitus without complications; J45.909 Unspecified asthma, uncomplicated
CPT/HCPCS: 99282